=== PATIENT | female | born 1990 | race Caucasian/White ===

== ENCOUNTER 2020-12-31 01:07 | Inpatient (IN) | payer BC, SELFPAY ==
[2020-12-31] VITALS (124 sets, daily range): BP systolic 78–150; BP diastolic 43–109; PULSE 57–247; RESP 18; TEMP 36.3–36.8; O2SAT 94–100; BMI 31.6
[2020-12-31 02:04] LABS: Basophils Percent Auto 0.2 % (0.2-1.2); Eosinophils Absolute Auto 0.1 K/mm3 (0-0.3); Eosinophils Percent Auto 1.1 % (0-4.4); Hematocrit 33.9 % (37.0-47.0); Hemoglobin 11.9 g/dL (12.0-15.0); Immature Granulocyte Absolute 0.14 K/mm3 (0.00-0.031); Immature Granulocyte Percent A 1.1 % (0-0.5); Lymphocytes Absolute Auto 3.05 K/mm3 (0.9-3.2); Lymphocytes Percent Auto 24.7 % (18.3-44.2); Mean Corpuscular HGB Conc 35.1 g/dl (32-36); Mean Corpuscular Volume 91.1 fl (80-100); Mean Platelet Volume 9.5 fl (7.4-10.4); Monocytes Percent Auto 7.9 % (2.6-8.5); Platelet Count Result 217 k/mm3 (150-375); Red Blood Count 3.72 M/mm3 (4.2-5.4); Red Cell Distribution Width 12.9 % (11.5-14.5); White Blood Count 12.3 K/mm3 (4.5-10.0)
[2020-12-31] MEDS: LACTATED RINGERS 1,000 ML 125 ML IV CONT ×2 (04:30→11:06)
[2020-12-31] MEDS: OXYTOCIN 30 UNITS/NS 500 ML 30 UNITS/500 ML BAG IV CONT (04:30)
--- NOTE | 2020-12-31 08:34 | WPDOBADMIT ---
Obstetrics - Admit Note Admission Note: record reviewed. No pertinent additions to the history and/or any subsequent changes in the physical findings that are not consistent with the expected course of the were found.SROM, admitted to LD, anticipate vaginal delivery Additions to the history and/or subsequent changes in the physical findings follow. None.
--- NOTE | 2020-12-31 08:46 | WPDANESEPP ---
Anes - Eval Pre Procedure Procedure: labor epidural Date/Time: 12/31/20 08:46 Surgeon: nhung Preop Diagnosis: pain during labor Pre Op Diagnosis: Leaking Patient Data Age: 30 Gender: F Height: 1.78 m Weight: 100 kg Last Vital Signs Temp 36.6 C 12/31/20 07:02 Pulse 96 12/31/20 08:31 BP 134/74 12/31/20 08:31 Pulse Ox 100 12/31/20 08:42 Allergies Allergy/AdvReac Type Severity Reaction Status Date / Time Penicillins Allergy Unknown Hives Verified 12/31/20 01:26 Home Medications Medication Instructions Recorded Confirmed Type PNV cmb#95-ferrous fumarate-FA 1 tablet PO DAILY 11/30/20 12/31/20 History [] Laboratory Tests 12/31/20 12/31/20 12/31/20 01:45 01:45 01:45 WBC 12.3 K/mm3 H K/mm3 (4.5-10.0) RBC 3.72 M/mm3 L M/mm3 (4.2-5.4) Hgb 11.9 g/dL L g/dL (12.0-15.0) Hct 33.9 % L % (37.0-47.0) MCV 91.1 fl fl (80-100) MCH 32.0 pg pg (26-34) MCHC 35.1 g/dl g/dl (32-36) RDW 12.9 % % (11.5-14.5) Plt Count 217 k/mm3 k/mm3 (150-375) MPV 9.5 fl fl (7.4-10.4) Immature Gran % (Auto) 1.1 % H % (0-0.5) Neut % (Auto) 65.0 % % (45.5-73.1) Lymph % (Auto) 24.7 % % (18.3-44.2) [place] % (Auto) 7.9 % % (2.6-8.5) Eos % (Auto) 1.1 % % (0-4.4) Baso % (Auto) 0.2 % % (0.2-1.2) Lymph # (Auto) 3.05 K/mm3 K/mm3 (0.9-3.2) [place] # (Auto) 1.0 K/mm3 H K/mm3 (0.1-0.6) Eos # (Auto) 0.1 K/mm3 K/mm3 (0-0.3) Baso # (Auto) 0.0 K/mm3 K/mm3 (0.0-0.1) Abs Immat Gran (auto) 0.14 K/mm3 H K/mm3 (0.00-0.031) Absolute Neuts (auto) 8.0 K/mm3 H K/mm3 (1.3-6.7) Absolute Nucleated RBC 0.0 K/mm3 K/mm3 (0.0-0.012) Nucleated RBC % 0.0 % % (0.0-0.2) RPR Pending Blood Type AB Positive Antibody Screen Negative Patient hx anesthesia problems: none Family hx anesthesia problems: none Results Review: All pre-operative results and documents have been reviewed as part of the pre-operative evaluation. [facility] Past Medical History Medical History (Updated 12/31/20 @ 08:47 by Micheline Kim CRNA) IUP (intrauterine ), incidental Family History Family History (Updated 11/30/20 @ 15:37 by Rodrigo Hinds RN) Other No pertinent family history Social History Social History Smoking status: Never smoker Second hand tobacco smoke exposure: No Substance use: never Spiritual care concerns: No Exam Day of Procedure 12/31/20 08:46
[2020-12-31] MEDS: fentaNYL CITRATE INJ (*CRX) 100 MCG/2 ML VIAL 50 MCG IV PUSH (10:07)
[2020-12-31] MEDS: ONDANSETRON INJ 4 MG/2 ML VIAL IV PUSH (17:25)
--- NOTE | 2020-12-31 19:40 | PM.OBPRVD ---
OB - Delivery Note Procedure Delivery date: 12/31/20 Procedure: vaginal delivery events: Meconium Stained Fluid Intrapartal events: None and Deceleration (prior to delivery of head) Induction method: none Delivery augmentation: pitocin Delivery monitor: external FHT and external uterine Route of delivery: Episiotomy description: Right Mediolateral Delivery repair: vicryl Specimen: Yes Quantitative Blood Loss (ml): 360 Anesthesia type: Epidural Disposition: floor [place] Baby Date of : 12/31/20 Time of : 19:17 Weeks of gestation at delivery: 40 Infant gender: Female Weight (pounds): 8 Weight (ounces): 9 presentation: vertex position: Left Occiput Transverse Placenta delivery description: Spontaneous cord vessel description: 3 Vessels, Nuchal Cord, Reduced and Clamped/Cut score five minutes: 9 Narrative: With pushing heart rate decreased, back to baseline, as head was , heart rate in 60-70, maternal fatigue, asked pt and was consented for episiotomy, small RML made and fetus quickly delivered and baby to nursery RN
[2020-12-31] MEDS: OXYTOCIN 30 UNITS/NS 500 ML 30 UNITS/500 ML BAG 125 UNITS IV CONT (20:52)
[2020-12-31] MEDS: IBUPROFEN 600 MG TABLET PO (22:18)
[2020-12-31] MEDS: BENZOCAINE 20% AER SPR (*SP) 56 GM CAN 1 SPRAY TOPICAL (22:19)
[2020-12-31] MEDS: WITCH HAZEL 40 PADS 1 PAD TOPICAL (22:19)
--- NOTE | 2021-01-01 01:25 | OBPPTRN ---
12/31/2020 at 2240 Patient transferred to post room #281 in wheelchair. Support person present. Mother and her significant other oriented to unit, room, information board, rooming in, admission packet and security measures. Patient verbalizes understanding.
[2021-01-01 03:15] VITALS: BP 100/61; PULSE 86; RESP 16; TEMP 36.5; O2SAT 99
[2021-01-01 05:27] LABS: Hematocrit 30.7 % (37.0-47.0); Hemoglobin 10.6 g/dL (12.0-15.0)
--- NOTE | 2021-01-01 07:44 | PM.OBPNVD ---
OB - PN: Subj Subjective Date/time seen: 01/01/21 07:44 [place] baby status: doing well feeding status: exclusively breast feeding Narrative: complains of sore nipples and perineal pain. only took ibuprofen once and no ice for a while. OB - PN: Obj Data Labs CBC & Chem 7: 01/01/21 04:44 Labs: Laboratory Results - last 24 hr 01/01/21 04:44 Hgb 10.6 L Hct 30.7 L OB - PN A/P Plan day: 1 Plan: routine care Comments: encouraged ibuprofen and ice for perineum encouraged ibuprofen, gel pads, and consult for sore nipples- may need deeper latch. routine post care. Time Spent With Patient Time: Total time spent is greater than 50% in coordination of care (as documented) at patient's floor/unit and/or counseling patient: Time with patient: less than 15 minutes Exam Narrative: NAD abdomen soft, nontender, fundus firm below the umbilicus Extremities nontender, 1+ edema
[2021-01-01 08:00] VITALS: BP 105/68; PULSE 94; RESP 18; TEMP 36.5; O2SAT 99
--- NOTE | 2021-01-01 08:00 | PC.NURSE ---
PT introductions made and plan of care discussed per , pain management, breast feeding, sore nipples, daily care activities. PT and spouse both recipients of such instructions. No barriers to learning identified at this time. PT receives instructions and care per one to one discussion, mom baby care guide and demonstrations. PT verbalized understanding of such care.
[2021-01-01] MEDS: IBUPROFEN 600 MG TABLET PO ×3 (08:15→23:06)
[2021-01-01] MEDS: MULTIVIT/MIN/PREN/FOL AC/IRON TABLET 1 TAB PO (08:15)
[2021-01-01] MEDS: DOCUSATE SODIUM 100 MG CAPSULE PO ×2 (08:15→16:19)
--- NOTE | 2021-01-01 09:15 | PC.NURSE ---
Mother called out for assist with feeding. Mother reports infant is sleepy and makes eager attempts to latch with good bursts of nursing. Mother is using a nipple shield for all feedings. Mother has pain with all feedings. keeps tongue back and is not opening wide for deep latch, is able to flange both lips. Mother has bruising to both nipples, with redness to areola. Nipples have a small profile. Nipple care reviewed of lanolin after feedings, warm compresses as needed, gel pads provided and reviewed care and cleaning. Reviewed infant feeding cues, frequencies, duration of feedings, feeding elimination flow sheet, and signs of adequate intake. Demonstrated stimulation techniques to wake infant for feeding. Assisted with to breast. Reviewed positioning/alignment in cross cradle, holding breast in ?U? hold and guided asymmetrical latch on. Reviewed rational for each. Infant was unable to latch correctly causing mother pain. Mother would grimace and quickly tighten up when infant began to nurse. Several attempts made with and without nipple shield no effective nursing noted and mother continues to have pain. With shield in place, infant unable to latch correctly. would latch shallow to tip of shield not to outer rim. Discussed the difference of effective vs ineffective feeding. Reviewed infant is latching with good burst of suckling, she is not feeding consistently with adequate milk transfer at this time and continues to need to be supplement after . Feeding options discussed, Feeding Plan is for mother to put infant to breast each feeding for up to 15 minutes, then pace feed supplement 20 mls and pump for 10-15 minutes. Parents are comfortable with supplementation and pumping. If begins to nurse effectively with long draws and frequent swallowing noted, may decrease supplementation and discontinue pumping. Suggested mother have LC mixer operator raw salt observe feeding before discontinuing supplementation. Discussed increasing supplementation as infant requires to satisfactions. Reviewed paced feeding and suggested to stop when is satisfied, as long as is having required output. With increased supplementation may not want to feed for 4 hours. Mother will continue to pump on feeding schedule and will increase session to 20 minutes if pumping every 4 hours. Instructed mother to call out for RN assistance if she is unable to latch infant for feeding or she has discomfort with nursing. Instructed feeding should be initiated three hours from start of last feeding or if feeding cues are noted before. Mother voiced understanding of information shared.
--- NOTE | 2021-01-01 09:20 | PC.NURSE ---
Reviewed breast pump care and usage, pumping schedule, nipple care, and collection and storage of breast milk. Encouraged [id number], breast massage and manual expression to stimulate supply. Assessed patient for correct flange size, placement and draw. Patient verbalizes and demonstrates understanding of instructions. Discussed colostrum vs milk supply and mother may not see more than a few drops the first few days, milk should transition in by day 3 and she may see more volume pumped per session.
[2021-01-01 11:41] LABS: Rapid Plasma Reagin Non-Reactive (NonReactive)
[2021-01-01 11:57] VITALS: BP 110/71; PULSE 103; RESP 18; TEMP 36.5; O2SAT 98
[2021-01-01 12:00] VITALS: PULSE 103; RESP 18; O2SAT 98
--- NOTE | 2021-01-01 12:30 | PC.NURSE ---
Consult with pt., mother reports nipples continue with tenderness and pain. Mother wishes to pump and bottle feed this feeding. Reviewed nipple care.
--- NOTE | 2021-01-01 14:30 | WPDANLDPN2 ---
Anes-Prog Note L&D Date/Time: 01/01/21 14:30 Comfortable throughout: labor and delivery Neuraxial method: epidural Epidural/Spinal procedure site: clean & non-tender Neuro status: Neuro function grossly intact. Cardiovascular status: normal Respiratory status: normal Airway patency: baseline Mental status: baseline Post-Op hydration status: normal Vital Signs: Last Vital Signs Temp 36.5 C 01/01/21 11:57 Pulse 103 H 01/01/21 12:00 Resp 18 01/01/21 12:00 BP 110/71 01/01/21 11:57 Pulse Ox 98 01/01/21 12:00 Pain score (VAS): 3 I/O: Intake & Output 12/31/20 01/01/21 01/01/21 23:59 07:59 15:59 Intake Total 500 Output Total 123 Balance 377 Post-procedural complaints: none Patient feedback: Patient satisfied with anesthetic care.
[2021-01-01 16:10] VITALS: BP 108/68; PULSE 100; RESP 16; RESP 18; TEMP 36.6; O2SAT 99
[2021-01-01 18:38] VITALS: BP 112/70; PULSE 91; RESP 16; TEMP 36.5; O2SAT 99
--- NOTE | 2021-01-01 20:45 | PC.NURSE ---
01/01/2021 at 2030 Patient viewed the discharge video Mother & Baby Care, The First Two Weeks . Patient was given the opportunity and encouraged to ask questions. Patient verbalized understanding of information shared and has been given the mother/baby guide for home reference.
--- NOTE | 2021-01-02 07:38 | PM.OBPNVD ---
OB - PN: Subj Subjective Date/time seen: 01/02/21 07:38 Patient comments: no complaints baby status: doing well [place] feeding status: pumping and bottle feeding OB - PN: Obj Data Labs CBC & Chem 7: 01/01/21 04:44 Labs: Laboratory Results - last 24 hr 12/31/20 01:45 RPR Non-reactive OB - PN A/P Plan day: 2 Plan: routine care and discharge home Time Spent With Patient Time: Total time spent is greater than 50% in coordination of care (as documented) at patient's floor/unit and/or counseling patient: Time with patient: less than 15 minutes Exam Narrative: NAD abdomen soft, nontender, fundus firm below the umbilicus Extremities nontender, 1+ edema
--- NOTE | 2021-01-02 07:41 | PM.OBDSVD ---
DS: Admitting Diagnosis Discharge Date 01/02/21 Admitting Diagnosis term , labor DS: Discharge Diagnosis Discharge Diagnosis (1) , delivered: Code(s): O80 - Encounter for full-term uncomplicated delivery Status: Acute OB - DS: Summary OB Procedures : Ultrasound OB Procedures Intrapartum: Spontaneous Vag Delivery OB Procedures: : None Peripartum Data Delivery Method: Natural Vaginal complications: none Status at Discharge Functional status at discharge: independent ambulation Time Spent with Patient Time attestation: Total time spent providing and/or coordinating discharge services: Time spent: Less than 30 minutes Exam Narrative: NAD abdomen soft, appropriately tender Ext non tender, 1+ edema DS: Data Data Completed and Pending Pending studies at discharge: Pending at discharge 12/31/20 19:23 Surgical [PTH] Routine Labs on day of discharge: Labs from last 24 hours 12/31/20 01:45 RPR Non-reactive Discharge Plan Discharge Attending physician on discharge: Misty Garcia Discharging Clinician: Misty Garcia Anticipated Discharge Date/Time: 01/02/21 11:00 Patient Disposition: Home, Self-Care Activity: may shower and pelvic rest Diet: regular Patient Instructions: Antibiotic Form Stand Alone Forms: General Discharge Information Follow-up/Referrals: Misty Garcia MD [Physician] - 4 Weeks Discharge Medications: Continued PNV cmb#95-ferrous fumarate-FA [] 28 mg iron- 800 mcg Tablet 1 tablet PO DAILY RF: 0 Date of admission: 12/31/20 01:07 Primary Care Provider: Marie Chun Admitting Provider: Misty Garcia Attending physician on admission: Misty Garcia Condition: Stable
[2021-01-02 07:55] VITALS: BP 104/66; PULSE 87; RESP 16; TEMP 36.6; O2SAT 100
[2021-01-02] MEDS: IBUPROFEN 600 MG TABLET PO (07:59)
[2021-01-02] MEDS: MULTIVIT/MIN/PREN/FOL AC/IRON TABLET 1 TAB PO (07:59)
--- NOTE | 2021-01-02 09:15 | PC.NURSE ---
Mother called out for assist with feeding. Mother reports infant continues with sleepiness and difficulties with latch. Mother uses the shield for each feeding and has pain with feeding. makes eager attempts to latch with a few good bursts of nursing. Infant is dropping tongue and has a slightly tight frenulum, both lips flange. . Skin is intact on both nipples, no redness and bruising noted. Nipple care reviewed of lanolin after feedings, warm compresses as needed, gel pads provided and reviewed care and cleaning. Reviewed infant feeding cues, frequencies, duration of feedings, feeding elimination flow sheet, and signs of adequate intake. Demonstrated stimulation techniques to wake for feeding. Assisted with to breast. Reviewed positioning/alignment in cross cradle, holding breast in ?U? hold and guided asymmetrical latch on. Reviewed rational for each. was able to latch using nipple shield, once latched made a weak effort to suckle with a few short draws and then fell asleep with nipple in mouth. Infant stimulated to wake with to return to breast with same results. Mother reported discomfort with nursing. Several attempts made to adjust latch without success. Mother states she will continue to attempt each feeding for a few minutes then bottle feed EBM/formula and pump. Mother has a [employer] double electric pump for home use. Feeding Plan is for mother to put to breast each feeding for 5-15 minutes, then pace feed supplement 25 mls and pump for 10-15 minutes. Parents are comfortable with supplementation and pumping. If begins to nurse effectively with long draws and frequent swallowing noted, infant may decrease supplementation and discontinue pumping. Suggested mother have LC immigration attorney observe feeding before discontinuing supplementation. Discussed increasing supplementation as requires to satisfactions. Reviewed paced feeding and suggested to stop when is satisfied, as long as is having required output. With increased supplementation may not want to feed for 4 hours. Mother will continue to pump on feeding schedule and will increase session to 20 minutes if pumping every 4 hours. Mother plan on discharge today. Mother is feeding as required and waking to feed if needed. Infantis currently meeting outcomes for weight, output, jaundice and feeding frequencies. Mother states she feels confident to continue current feeding plan at home. Reviewed transition to breast milk, signs of adequate intake, and engorgement/relief. Instructed to call ICP if intake/output less than required. Reviewed regular medications mother is taking. Information provided per Yanna. Reviewed community resources on the [facility] and in the Mom/Baby guide. Information on outpatient services provided. Mother has no further questions at this time.
[2021-01-03 08:11] VITALS: BP 121/79; PULSE 90; RESP 20; TEMP 37; O2SAT 100
== END 2021-01-02 13:25 | disposition home or self-care (01) | DRG 807 ==
LOC: ANHLDR 01:46 → ANHOB2 22:42
PROVIDERS: Advanced Practice Midwife; Admitting Provider Obstetrics & Gynecology; PCP Family Medicine; Visit Provider Obstetrics & Gynecology
DX: O76 Abnormality in fetal heart rate and rhythm complicating labor and delivery (principal); Z37.0 Single live birth; O77.0 Labor and delivery complicated by meconium in amniotic fluid; O69.81X0 Labor and delivery complicated by cord around neck, without compression, not applicable or unspecified; Z3A.40 40 weeks gestation of pregnancy
CPT/HCPCS: 36415; 85014; 85018; 85025; 86592; 86850; 86900; 86901; 88307; A9270; J2405; J2590; J2795; J3010; J7120

== ENCOUNTER 2021-01-09 14:11 | Outpatient (RCR) | payer BC, SELFPAY ==
--- NOTE | 2021-01-09 15:00 | PC.NURSE ---
IN 1300 OUT 1400 HISTORY: Pt. delivered at [facility] at 38 weeks. had no complications after delivery. Mother had no complications after delivery. Mother and discharged on a feeding plan due to ineffective feeding and nursing with nipple shield. Infant is now 09 days old. appears to be well cared for. last seen/will be seen by ICP at 1 week. Mother reports: Currently at 8 wets per day and 2-4 yellow seedy stools per day. Once discharged infant began feeding more frequently, mother was having difficulties keeping up with feeding schedule. Infant would feed every 2-3 hours for 15-30 minutes at one breast, mother would pump for 15 minutes, while FOB would bottle feed 60mls mostly EBM. Mother struggles with nipple shield and reports discomfort at times with feeding. is sleepy and on and off several times during feeding. Mother is pumping 60-80 mls each session without issue. Mother wishes: Mother states she is unsure if she wishes to discontinue bottle feeding and may want to pump and bottle feed,not putting infant to breast. Parents would like to discuss and review process for each feeding plan. OBSERVATION: Tongue is able to move tongue freely past gum ridge, both lips flange easily. Mother has everted nipples slight redness noted. Mother is engorged, advised to self express to soften before attempting latch. Demonstrated self expression. Discussed if breasts are firm infant is unable to draw areola in deeply for correct latch and is only nursing on nipple. Observed mother putting infant to breast in cradle positioning with infant latching to nipple only. Mother is grimacing in discomfort. Reviewed positioning/alignment in cross cradle, holding breast in U hold and guided asymmetrical latch on. Discussed rational for each. Infant was able to latch correctly within a few attempts. nursed eagerly, with steady draws and frequent swallowing noted. Reviewed signs of a correct latch, effective nursing and suck swallow ratio. would pull back while feeding, slipping to shallow latch causing mother discomfort. Infant would frequently release latch, eager to return to breast Demonstrated how to adjust latch more deeply while feeding. Suggested mother give slight resistance and bring infant to breast when he pulls back. Advised to stimulate while feeding to keep nursing effectively/consistent and to assist with maintaining latch. Mother was able to independently switch to other breast without assist. Advised to offer both breasts per feeding to move infant off of supplementation and bottle feeding. Discussed if mother is able to pump and give EBM to satisfaction, she has enough milk to satisfy infant. Infant needs to maintain latch and empty both breasts, before supplementation is discontinued. Mother will put infant to breast on demand or by three hours from last feeding. If mother choose to pump and bottle feed, mother will pump both breasts every 2-3 hours for 15-20 minutes. Reviewed warm compresses and massage before pumping. PLAN: Mother plans to work on more over the next few days before making the decision to pump and bottle feed. Mother will call with further questions or concerns.
== END 2021-03-15 12:39 | disposition home or self-care (01) ==
LOC: ANHOBOP 14:11
PROVIDERS: PCP Family Medicine; Visit Provider Pediatrics
DX: Z39.1 Encounter for care and examination of lactating mother (principal)
CPT/HCPCS: 99212; G0463

== ENCOUNTER 2021-01-15 02:33 | Day surgery (SDC) | payer BC, SELFPAY ==
[2021-01-11 15:26] VITALS: BMI 28.7
--- NOTE | 2021-01-11 15:34 | PC.NURSE ---
Report to the Outpatient Waiting Room, entrance under the green pavilion located off [facility], at time 0630 on date 01/15/21. OR Time: 0830. - You and your visitor will be asked a series of questions to screen for COVID 19 for your protection. - A mask is required within the hospital. - Only one visitor is allowed at this time. Patient visitors will be guided where to wait when not with patient. Preoperative COVID Testing Requirements: No COVID Test needed if: (proof is required; if not received patient will have Rapid Test prior to entry) - Patient has received COVID Vaccine at least 14 days prior to procedure date or - Patient has positive COVID test result within last 90 days of surgery date. COVID Test needed if above criteria is not met If not COVID vaccinated a COVID test must be conducted within 72 hours of surgery and patient is asked to isolate self from time of testing until procedure. You will go to the [facility] for your COVID testing. The [facility] site is located at the corner of [address] [facility]. You will only be called if COVID results are positive and your surgeon may reschedule your elective surgery date. Patients may have clear liquids (water, carbonated beverages, clear teas, apple juice) until 3 hours prior to surgery with a maximum of 20 ounces. - No food from midnight until time of surgery - Infants may have breast milk until 4 hours before surgery, infant formula 6 hours prior to surgery. - Children will be allowed to drink immediately following surgery. If applicable, please bring a bottle or sippy cup to assist with drinking. Juice, water, soda, and popsicles are readily available. For infants on formula, please bring formula the day of surgery. Pacifiers are allowed. Take the following medications with a SIP of water the morning of surgery: N/A Medications to discontinue per physician: VITAMINS/SUPPLEMENTS Date to take last dose: 01/12/21 IBUPROFEN - PER DR. ALDANA Please no make-up, nail togolese, hairspray, perfume, deodorant, or body powder the day of surgery. No jewelry (including any body piercings) or valuables the day of surgery, leave them at home. Please take a shower or bath the night before, or the morning of, surgery with an antibacterial soap. Wear comfortable, loose fitting clothing. Children are encouraged to wear pajamas. - Jewelry must be removed prior to entering the operating room. Rings and piercings that are not removed may be cut off. - The hospital will not accept responsibility for valuables. - Please leave all valuables, including medications, at home the day of surgery. If you are going home after surgery, a licensed local hazmat driver must drive you home. - NO public transportation without another adult. - We recommend that an adult stay with you for 24 hours following discharge. - We also recommend that you do not drive, make important decision, drink alcoholic beverages, or take any drugs that were not prescribed by your health care provider for at least 24 hours after your discharge time. For Pediatric surgeries, we recommend two adults accompany the child home (only one inside the building at this time). Follow any additional instructions given to you from your surgeon. Telephone instructions given to JESSICA HAMILTON and asked if any additional questions and then verbalized understanding. Patient advised to call surgeon office or pre surgery nurse liaison [phone] if any additional questions.
[2021-01-15] VITALS (8 sets, daily range): BP systolic 96–131; BP diastolic 63–87; PULSE 74–107; RESP 16–18; TEMP 36.1–36.2; O2SAT 96–100
--- NOTE | 2021-01-15 06:48 | WPDANESEPPF ---
Anes - Initial Pre Proc Eval Procedure: Operation Date: 01/15/21 08:30 Proposed Procedures p Revision Perineal Laceration - Misty Garcia MD Date/Time: 01/15/21 06:48 Surgeon: Misty Garcia MD Pre Op Diagnosis: perineal laceration, OB wound disruption Patient Data Age: 30 Gender: F Height: 1.78 m Weight: 90.7 kg Allergies Allergy/AdvReac Type Severity Reaction Status Date / Time Penicillins Allergy Unknown Hives Verified 01/11/21 15:24 Home Medications Medication Instructions Recorded Confirmed Type PNV cmb#95-ferrous fumarate-FA 1 tablet PO DAILY 11/30/20 01/11/21 History [] docusate sodium [Colace] 100 mg PO DAILY 01/11/21 01/11/21 History ibuprofen 200 mg PO Q6H PRN 01/11/21 01/11/21 History Patient hx anesthesia problems: none Family hx anesthesia problems: none Results Review: All pre-operative results and documents have been reviewed as part of the pre-operative evaluation. [facility] Past Medical History Medical History (Updated 01/15/21 @ 06:48 by Nawaf Toussaint MD) IUP (intrauterine ), incidental Overweight Surgical History Surgical History (Updated 01/15/21 @ 06:49 by Nawaf Toussaint MD) H/O breast surgery Family History Family History Other No pertinent family history Social History Social History Smoking status: Never smoker Second hand tobacco smoke exposure: No Alcohol intake: never Substance use: never Substance use type: does not use Living arrangements: with family Spiritual care concerns: No Anes - Eval Final PreProcedure Day of Procedure 01/15/21 06:48 Patient weight: overweight Heart: regular rate and rhythm Lungs: clear to auscultation Airway: Mallampati scale class II Neurological: alert and oriented Last oral intake: >/= 8 hours Anesthetic plan: proceed Anesthesia type and monitoring: general LMA and standard monitoring Results Review: All pre-operative results and documents have been reviewed as part of the pre-operative evaluation. Informed Consent: The patient's anesthetic plan and its attendant risks and benefits were discussed with the patient/family/POA. Questions were solicited and answers provided to the satisfaction of the patient/family/POA.
[2021-01-15] MEDS: LACTATED RINGERS 1,000 ML 30 ML IV CONT (06:55)
--- NOTE | 2021-01-15 07:24 | PM.IMHP ---
H&P: HPI History of Present Illness Date/Time: 01/15/21 07:24 Chief Complaint: episiotomy open Narrative: Elida is a 30yo 2weeks s/p with episiotomy that had increasing pain and lump at perineum starting last week. She was noted to have partial disruption of her repair, with a portion of right side of repair hanging midline and deeper tissues exposed. She presents for repair of this. Review of Systems Review of Systems: All systems reviewed & are unremarkable except as noted in HPI and below PMFSH Past Medical History Medical History (Updated 01/15/21 @ 07:27 by Misty Garcia MD) IUP (intrauterine ), incidental Overweight Surgical History Surgical History (Updated 01/15/21 @ 06:49 by Nawaf Toussaint MD) H/O breast surgery Family History Family History Other No pertinent family history Social History Social History Smoking status: Never smoker Second hand tobacco smoke exposure: No Alcohol intake: never Substance use: never Substance use type: does not use Living arrangements: with family Spiritual care concerns: No Meds Home Medications and Allergies Home Medications Medication Instructions Recorded Confirmed Type PNV cmb#95-ferrous fumarate-FA 1 tablet PO DAILY 11/30/20 01/15/21 History [] docusate sodium [Colace] 100 mg PO DAILY 01/11/21 01/15/21 History ibuprofen 200 mg PO Q6H PRN 01/11/21 01/15/21 History Allergies Allergy/AdvReac Type Severity Reaction Status Date / Time Penicillins Allergy Unknown Hives Verified 01/15/21 07:15 Vital Signs Vital Signs - 24 hr 01/15/21 06:30 Temperature 97.1 F L Pulse Rate 74 Respiratory Rate 18 Blood Pressure 106/87 Pulse Oximetry 99 Exam Const: General: no acute distress Resp: Effort & Inspection: normal respiratory effort Auscultation: clear to auscultation bilaterally Cardio: Rate: regular rate Rhythm: regular rhythm GI: GI Palp: Yes Soft to palpation Extrem: General: normal to inspection Assessment and Plan Assessment and plan (1) Disruption of perineal obstetric wound: Code(s): O90.1 - Disruption of perineal obstetric wound Status: Acute Additional Plan Discussed RBA and consented for repair in OR. no signs of infection. Will proceed.
--- NOTE | 2021-01-15 07:27 | WPDHPUPDATE1 ---
History and Physical Update Update Date/Time: 01/15/21 07:27 History and Physical has been reviewed, including an updated exam of the patient. There are NO changes in the patient's condition. Risks, benefits, and alternatives have been discussed and questions answered. Patient agrees to proceed with procedure.
[2021-01-15] MEDS: LIDO 1%/EPINEPHRINE 1:100,000 50 ML VIAL 10 ML INFILTRATE (08:45)
--- NOTE | 2021-01-15 09:19 | SUR.OPER ---
EBL:10cc
--- NOTE | 2021-01-15 09:23 | P.OP_ITS ---
Procedure Note - Detailed Date of Procedure 01/15/21 Pre-op Diagnosis perineal laceration, OB wound disruption Post-op Diagnosis same Procedure Performed revision of disrupted obstetric laceration Surgeon Misty Garcia MD Drop Hammer Set Up Operator none Anesthesia MAC and local Description of Procedure The patient was taken to the operating room and placed in supine position. She received MAC and was placed in dorsal lithotomy in stirrups. The vulva and vagina were prepped and draped. 11cc lidocaine instilled bilaterally in the skin around the disrupted wound. The edges were freshened up using metzenbaum scissors and scalpel. Two deep sutures were placed with 3-0 vicryl to reapproximate the tissue, and the mucosa/skin was then closed with 3-0 vicryl. The total repair length was 2cm mucosa in the vagina and 4cm on the right labia and perineum for a total of 6cm. Hemostasis was excellent. The patient was awakened from anesthesia and taken to the recovery room in good condition. Estimated Blood Loss 10 Drains No Packing No Pathology yes Complications No immediate complications Condition stable Disposition floor
== END 2021-01-15 11:20 | disposition home or self-care (01) ==
PROVIDERS: PCP Family Medicine; Visit Provider Obstetrics & Gynecology
PROC: (CPT 59300; principal; 2021-01-15 08:30)
DX: O90.1 Disruption of perineal obstetric wound (principal)
CPT/HCPCS: 12042; A9270; J1100; J2250; J2405; J2704; J3010; J7120

== ENCOUNTER 2023-10-04 18:24 | Outpatient (CLI) | payer BC, SELFPAY ==
[2023-10-04 23:34] LABS: OBXCEM ROM Plus Negative
== END 2023-10-04 19:10 | disposition home or self-care (01) ==
PROVIDERS: PCP Family Medicine; Visit Provider Advanced Practice Midwife
DX: O41.8X90 Other specified disorders of amniotic fluid and membranes, unspecified trimester, not applicable or unspecified (principal); Z3A.00 Weeks of gestation of pregnancy not specified
CPT/HCPCS: 59025; 84112

== ENCOUNTER 2023-10-05 19:31 | Inpatient (IN) | payer BC, SELFPAY ==
[2023-10-05 21:00] VITALS: BP 111/70; PULSE 97
[2023-10-05 21:05] LABS: Basophils Percent Auto 0.4 % (0.2-1.2); Eosinophils Absolute Auto 0.1 K/mm3 (0-0.3); Eosinophils Percent Auto 1.1 % (0-4.4); Hematocrit 34.1 % (37.0-47.0); Hemoglobin 11.8 g/dL (12.0-15.0); Immature Granulocyte Absolute 0.07 K/mm3 (0.00-0.031); Immature Granulocyte Percent A 0.7 % (0-0.5); Lymphocytes Absolute Auto 2.65 K/mm3 (0.9-3.2); Lymphocytes Percent Auto 24.8 % (18.3-44.2); Mean Corpuscular HGB Conc 34.6 g/dl (32-36); Mean Corpuscular Volume 89.5 fl (80-100); Mean Platelet Volume 9.9 fl (7.4-10.4); Monocytes Absolute Auto 0.7 K/mm3 (0.1-0.6); Monocytes Percent Auto 6.4 % (2.6-8.5); Neutrophils Absolute Auto 7.1 K/mm3 (1.3-6.7); Neutrophils Percent Auto 66.6 % (45.5-73.1); Platelet Count Result 209 k/mm3 (150-375); Red Blood Count 3.81 M/mm3 (4.2-5.4); Red Cell Distribution Width 13.3 % (11.5-14.5); White Blood Count 10.7 K/mm3 (4.5-10.0)
[2023-10-05 21:56] LABS: HIV 1/2 Ab P24 Ag Result Negative (Negative)
[2023-10-05 22:00] VITALS: TEMP 36.4
[2023-10-05 22:01] VITALS: BP 115/70; PULSE 81
[2023-10-05 22:10] LABS: Rapid Plasma Reagin Non-Reactive (NonReactive)
[2023-10-06] VITALS (144 sets, daily range): BP systolic 88–125; BP diastolic 41–82; PULSE 58–122; RESP 16–18; TEMP 36.4–37.7; O2SAT 93–100; BMI 30.9
[2023-10-06] MEDS: fentaNYL CITRATE INJ (*CRX) 100 MCG/2 ML VIAL IV PUSH (01:23)
--- NOTE | 2023-10-06 02:02 | WPDANESEPP ---
Anes - Eval Pre Procedure Procedure: labor epidural Date/Time: 10/06/23 02:02 Surgeon: Taz Preop Diagnosis: Abdominal pain with contractions Pre Op Diagnosis: SROM Patient Data Age: 32 Gender: F Height: Weight: Last Vital Signs Pulse 79 10/06/23 02:00 BP 122/82 10/06/23 02:00 Allergies Allergy/AdvReac Type Severity Reaction Status Date / Time Penicillins Allergy Unknown Hives Verified 09/26/23 12:32 Home Medications Medication Instructions Recorded Confirmed Type vits no.126-ferrous fum 1 tablet PO DAILY 09/26/23 09/26/23 History 28 mg iron-folic acid 800 mcg tablet (Classic ) Laboratory Tests 10/05/23 10/05/23 20:57 20:58 WBC 10.7 H K/mm3 (4.5-10.0) RBC 3.81 L M/mm3 (4.2-5.4) Hgb 11.8 L g/dL (12.0-15.0) Hct 34.1 L % (37.0-47.0) MCV 89.5 fl (80-100) MCH 31.0 pg (26-34) MCHC 34.6 g/dl (32-36) RDW 13.3 % (11.5-14.5) Plt Count 209 k/mm3 (150-375) MPV 9.9 fl (7.4-10.4) Immature Gran % (Auto) 0.7 H % (0-0.5) Neut % (Auto) 66.6 % (45.5-73.1) Lymph % (Auto) 24.8 % (18.3-44.2) Lamb % (Auto) 6.4 % (2.6-8.5) Eos % (Auto) 1.1 % (0-4.4) Baso % (Auto) 0.4 % (0.2-1.2) Lymph # (Auto) 2.65 K/mm3 (0.9-3.2) Lamb # (Auto) 0.7 H K/mm3 (0.1-0.6) Eos # (Auto) 0.1 K/mm3 (0-0.3) Baso # (Auto) 0.0 K/mm3 (0.0-0.1) Abs Immat Gran (auto) 0.07 H K/mm3 (0.00-0.031) Absolute Neuts (auto) 7.1 H K/mm3 (1.3-6.7) Absolute Nucleated RBC 0.000 K/mm3 (0.0-0.012) Nucleated RBC % 0.0 % (0.0-0.2) RPR Non-reactive (NonReactive) HIV 1&2 Ab/P24 Ag 4thGn Negative (Negative) Blood Type AB Positive Antibody Screen Negative : gestational age HCG: positive Patient hx anesthesia problems: none Family hx anesthesia problems: none Results Review: All pre-operative results and documents have been reviewed as part of the pre-operative evaluation. [facility] Past Medical History Medical History History of anemia IUP (intrauterine ), incidental Overweight TMJ (temporomandibular joint disorder) Surgical History Surgical History H/O breast surgery Family History Family History Other No pertinent family history Social History Social History Smoking status: Never smoker Second hand tobacco smoke exposure: No Alcohol intake: never Alcohol use details: RARE Substance use: never Substance use type: does not use Living arrangements: with family Occupation/Education: occupation Spiritual care concerns: No Exam Day of Procedure 10/06/23 02:02 Patient weight: overweight
[2023-10-06] MEDS: LACTATED RINGERS 1,000 ML 125 ML IV CONT ×3 (02:27→08:39)
--- NOTE | 2023-10-06 04:21 | LDADM ---
This patient, Consuelo Morales, was admitted to Labor/Delivery/Recovery 105 on 10/05/23 at 19:31. Plans for labor, pain management and were discussed with patient. Patient/family oriented to hospital policies and general routines including ID bracelet, bed and alarms, visiting hours, pain management, procedures, bathroom and other care routines, personal items, smoking policy, room service/diet and guest tray routines, infant security routines, and visiting hours. Patient/Family are encouraged to report perceived risks to care and to ask questions if they do not understand what they are told or what they should do. See OBIX for further documentation.
[2023-10-06] MEDS: OXYTOCIN 30 UNITS/NS 500 ML 30 UNITS/500 ML BAG IV CONT (08:40)
[2023-10-06] MEDS: ACETAMINOPHEN 500 MG TABLET 1000 MG PO (08:48)
[2023-10-06] MEDS: ONDANSETRON INJ 4 MG/2 ML VIAL IV PUSH (09:36)
--- NOTE | 2023-10-06 10:02 | WPDOBADMIT ---
Obstetrics - Admit Note Admission Note: record reviewed. No pertinent additions to the history and/or any subsequent changes in the physical findings that are not consistent with the expected course of the were found. Additions to the history and/or subsequent changes in the physical findings follow. Admit in labor, SROM, anticipate vaginal delivery
--- NOTE | 2023-10-06 12:58 | PM.OBPRVD ---
OB - Vaginal Delivery Note Procedure Delivery date: 10/06/23 Delivery augmentation: Pitocin Delivery monitor: External FHT and External Uterine Route of delivery: Episiotomy description: Right Mediolateral Delivery repair: vicryl Specimen: No Quantitative Blood Loss (ml): 200 Anesthesia type: Epidural Disposition: Floor Complications: No immediate complications Baby Date of : 10/06/23 Time of : 12:43 Gestational Age by Date: 37 Infant gender: Female Weight (pounds): 8 Weight (ounces): 8 presentation: vertex position: Left Occiput Anterior Placenta delivery description: Spontaneous Cord Vessel Description: 3 Vessels, Nuchal Cord (x1), Loose, Clamped/Cut and Around Body (x1) Narrative: mother and baby in stable condition
[2023-10-06] MEDS: OXYTOCIN 30 UNITS/NS 500 ML 30 UNITS/500 ML BAG 125 UNITS IV CONT (13:11)
[2023-10-06] MEDS: ACETAMINOPHEN 325 MG TABLET 650 MG PO ×2 (14:36→23:30)
[2023-10-06] MEDS: WITCH HAZEL 40 PADS 1 PAD TOPICAL (15:30)
[2023-10-06] MEDS: BENZOCAINE 20% AER SPR (*SP) 56 GM CAN 1 SPRAY TOPICAL (15:30)
--- NOTE | 2023-10-06 16:14 | OBPPTRN ---
Patient transferred to post room #282 via wheelchair. Support person present. Oriented to unit, room, information board, rooming in, admission packet and security measures. Patient verbalizes understanding.
[2023-10-07 03:45] VITALS: BP 95/66; PULSE 75; RESP 16; TEMP 36.6; O2SAT 100
[2023-10-07 04:44] LABS: Hematocrit 30.8 % (37.0-47.0); Hemoglobin 10.6 g/dL (12.0-15.0)
--- NOTE | 2023-10-07 05:17 | PM.OBPNVD ---
OB - PN: Subj Subjective Date/time seen: 10/07/23 05:17 Interval history: PPD#1 Doing well, having some increased cramping with no nausea or vomiting Voiding without issue OB - PN: Obj Data Labs 10/07/23 03:37 Labs: Laboratory Results - last 24 hr 10/07/23 03:37 Hgb 10.6 L Hct 30.8 L OB - PN A/P Assessment and Plan (1) (spontaneous vaginal delivery): Code(s): O80 - Encounter for full-term uncomplicated delivery Status: Acute Plan day: 1 Plan: routine care Time Spent With Patient Time: Total time spent is greater than 50% in coordination of care (as documented) at patient's floor/unit and/or counseling patient: Review of Systems Review of Systems: All systems reviewed & are unremarkable except as noted in HPI and below Exam Const: General: comfortable and no acute distress Orientation/consciousness: patient oriented x3 Resp: Effort & Inspection: normal respiratory effort
[2023-10-07 07:20] VITALS: BP 102/68; PULSE 76; RESP 16; TEMP 36.9; O2SAT 100
[2023-10-07] MEDS: MULTIVIT/MIN/PREN/FOL AC/IRON TABLET 1 TAB PO (07:24)
[2023-10-07] MEDS: DOCUSATE SODIUM 100 MG CAPSULE PO ×2 (07:24→16:22)
[2023-10-07] MEDS: ACETAMINOPHEN 325 MG TABLET 650 MG PO ×2 (07:26→16:22)
--- NOTE | 2023-10-07 09:30 | PC.NURSE ---
Introductions were made, then consulted with patient to assess needs related to . Mother led the conversation with her?plans to feed?her infant and the?experience so far. Encouraged understanding of the benefits of skin to skin and waking especially in the first 24 hours of life. Mother's main complaint is pain with pumping. We measured her nipple and switched to a 27mm flange. Discussed that pumping should not hurt. Mother has attempted to latch baby since she came out of the level 2 nursery but has not had good success. She had latch difficulty with her first baby and exclusively pumped and bottle fed. She has tried the latch assist to draw her nipple out prior to feeding but she does not like it. We discussed pumping for a minute or two before feeding for a similar effect. Mother agrees to try this at the next feeding. Mother voiced understanding of skin to skin, talking to infant to encourage if it has been 2 -2.5 hours since the start of the last , to call if does not latch, or if there is discomfort with . Parents voiced understanding of information, demonstrated learning and will call if there is a request for assistance. Reported to the Primary RN.
--- NOTE | 2023-10-07 12:06 | WPDANLDPN2 ---
Anes-Prog Note L&D Date/Time: 10/07/23 12:06 Neuro status: Neuro function grossly intact. Cardiovascular status: normal Respiratory status: normal Airway patency: baseline Mental status: baseline Post-Op hydration status: normal Vital Signs: Last Vital Signs Temp 36.9 C 10/07/23 07:20 Pulse 76 10/07/23 07:20 Resp 16 10/07/23 07:20 BP 102/68 10/07/23 07:20 Pulse Ox 100 10/07/23 07:20 O2 Del Method Room Air 10/06/23 19:30 Pain score (VAS): 0 Post-procedural complaints: none Patient feedback: Patient satisfied with anesthetic care.
[2023-10-07 12:16] VITALS: BP 113/65; PULSE 72; RESP 16; TEMP 36.3; O2SAT 100
[2023-10-07] MEDS: WITCH HAZEL 40 PADS 1 PAD TOPICAL (13:51)
--- NOTE | 2023-10-07 14:40 | PC.NURSE ---
[id number] RN advised parents that she had received the OK for both mother and baby to be discharged as soon as they were ready, parents are still unsure about a name and mother would like to take a nap before discharge. Per mother her daughter and parents are coming after 4pm so they would like to go home later.
--- NOTE | 2023-10-07 16:25 | PM.OBDSVD ---
DS: Admitting Diagnosis Discharge Date 10/07/23 Admitting Diagnosis labor DS: Discharge Diagnosis Discharge Diagnosis (1) (spontaneous vaginal delivery): Code(s): O80 - Encounter for full-term uncomplicated delivery Status: Acute OB - DS: Summary OB Procedures : None OB Procedures Intrapartum: Spontaneous Vag Delivery OB Procedures: : None Peripartum Data Episiotomy description: Right Mediolateral Time Spent with Patient Time attestation: Total time spent providing and/or coordinating discharge services: DS: Data Data Completed and Pending Labs on day of discharge: Labs from last 24 hours 10/07/23 03:37 Hgb 10.6 L Hct 30.8 L Discharge Plan Discharge Attending physician on discharge: Edilberto Buenrostro Consulting providers: Marian Austin Discharging Clinician: Edilberto Buenrostro Patient Disposition: Home, Self-Care Activity: may shower, as tolerated and pelvic rest Diet: as tolerated Patient Instructions: Antibiotic Form Stand Alone Forms: General Discharge Information Follow-up/Referrals: Marian Austin, CNM [Certified Nurse [employer]] - 5 Weeks Discharge Medications: New docusate sodium 100 mg Capsule 100 mg PO BID PRN (Reason: Constipation) Qty: 60 0RF ibuprofen 600 mg Tablet 600 mg PO Q6H PRN (Reason: Cramping) Qty: 30 0RF Continued Classic 28 mg iron- 800 mcg Tablet 1 tablet PO DAILY Date of admission: 10/05/23 19:31 Primary Care Provider: Marie Chun Admitting Provider: John Mcghee Attending physician on admission: John Mcghee Condition: Stable
[2023-10-08 08:34] VITALS: BP 120/79; PULSE 87; RESP 18; TEMP 36.8; O2SAT 100
== END 2023-10-07 18:55 | disposition home or self-care (01) | DRG 807 ==
LOC: ANHOB2 10-07 16:55 → ANHLDR 10-08 07:45 → ANHOB2 10-08 07:45
PROVIDERS: Advanced Practice Midwife; Admitting Provider Obstetrics & Gynecology; PCP Family Medicine; Visit Provider Obstetrics & Gynecology
DX: O69.82X0 Labor and delivery complicated by other cord entanglement, without compression, not applicable or unspecified (principal); Z37.0 Single live birth; Z3A.37 37 weeks gestation of pregnancy; O77.0 Labor and delivery complicated by meconium in amniotic fluid
CPT/HCPCS: 36415; 85014; 85018; 85025; 86592; 86703; 86850; 86900; 86901; A9270; G0432; J2405; J2590; J2795; J3010; J7120

== ENCOUNTER 2024-08-09 08:22 | Outpatient (CLI) | payer BC, SELFPAY ==
--- OUTSIDE RECORDS SUMMARY | 2024-08-09 08:40 | XMS_ITS | Data Portability ---
Author Organization [facility] Address [address] [place] [address] Care Team Providers Care Merchandising Professor Name Role Phone SHOAIB MARCH Primary Care Provider [phone] Assessment Encounter Date Assessment Date Assessment LastModified by Organization Details LastModified Time 09/26/2023 09/26/2023 Patient is _36__weeks . Discussed plan. Not available 09/26/2023 11:56:52 10/01/2023 10/01/2023 Patient is _36__weeks . Discussed plan. Not available 10/01/2023 10:55:02 03/26/2024 03/26/2024 Annual gynecological exam performed. Patient will come back in a year unless there are new symptoms. Suggest Calcium with Vitamin D if not eating in diet. Patient advised to get annual flu shot. Recommend yearly physicals and preform monthly breast exams. Genetic testing is available for patients with family history of cancer. Engage in safe sexual practices, use condoms. Encouraged to have daily exercise. Avoid tobacco and illicit drugs, moderation of alcohol. If BMI greater than 25 dietary consult advised. If you have any questions please call or email. [email or web address] Not available 03/26/2024 14:33:11 Plan of Treatment Reminders Order Date Submit Date Provider Last Modified By Organization Details Last Modified Time Details Appointments None record ed. Lab None record ed. Referral None record ed. Procedures None record ed. Surgeries None record ed. Imaging US, obstet rene, follow -up 024 09/26/19 24 [email or web address] [facility], [address], [address], [place], [address], 22:52:30 Medication Orders None record ed. Patient TargetsNo targets recorded. Patient InstructionsNo instructions recorded. Reason for Referral None Reported. Results Created Date Observation Date Name Description Value Unit Range Abnormal Flag Note LastModifiedBy Organization Detail LastModifiedTime 09/26/19 24 09/26/2023 US, obste tric, follo w-up No observ ation record ed. vince [facility] [address], [place], [address], 09/26/2023 13:45:45 09/26/19 24 09/26/2023 US, obste tric, follo w-up No observ ation record ed. SHALOM Lana [address], [place], [address], 10/13/2023 04:10:13 Result Notes None recorded. Problems Name Problem SNOMED Code Status Onset Date Resolution Date Notes Provider Name and Address Organization Details Recorded Time SNOMED CT Concept Completed 201805/19/2020 Encntr for ticket worker exam (general ) (routine ) w/o abn findings ;Recorde d Elsewher e: No Locat ion: [facility] S ource: EHR Respiratory Equipment Assistant brea: N Radha ce ID: [id number] Tin lable Time: 10:30:00 AM Annie holman, [facility] 1 14:36:33 Pregnanc y [id number] Completed 202001/16/2021 Reji holman [facility] 4 15:12:37 Pregnanc y [id number] Completed 202310/16/2023 Reji holman [facility] 4 15:12:36 Large for gestatio n age fetus [id number] Completed 2023 Marian Austin CNM [address], [place], [address], [facility] 4 11:57:26 Problem Notes None recorded. Procedures Surgical History Date Name Laterality Status Provider Name and Address Organization Details Recorded Time 5 Date of Last Pap Smear completed [facility] 03/26/2024 14:13:04 1 repair of vagina completed [facility] 03/14/2023 13:01:07 8 Date of Last Mammogram completed [facility] 03/14/2023 12:52:26 8 lumpectomy of breast completed [facility] 11/17/2019 21:30:53 6 extraction of wisdom tooth completed [facility] 03/14/2023 13:01:33 Imaging Results None recorded. Procedure Notes None recorded. Medical Equipment None Reported. Allergies Allergen ID Allergen Name Allergen Category Reaction Reaction Severity Criticality Documentation Date Start Date Code Code System Note Provider Name and Address Organization Details Recorded Time 1955 Product containin g penicilli n (product) medicatio n Not available Not available Not available 11/05/2019 97163 8001 SNOMED [facility] 16:47:19 Medications Name Sig Start Date Stop Date Status Note LastModified by Organization Details LastModified Time kit car 10/20 completed Not Available Not Available Not Available prednison e 10 mg tablet 03/14 completed Not Available Not Available Not Available doxycycli ne hyclate 100 mg capsule TAKE 1 CAPSULE BY MOUTH EVERY 12 HOURS FOR 10 DAYS 03/14 completed Not Available Not Available Not Available fluconazo le 150 mg tablet TAKE 1 TABLET BY MOUTH EVERY DAY FOR 1 DAY 05/19 completed Not Available Not Available Not Available prednison e 20 mg tablet 11/04 completed Not Available Not Available Not Available metronida zole 500 mg tablet TAKE 1 TABLET BY MOUTH EVERY 12 HOURS FOR 7 DAYS 05/19 completed Not Available Not Available Not Available nystatin- triamcino lone 100,000 unit/gram -0.1 % topical ointment APPLY EXTERNAL LY TO THE AFFECTED AREA TWICE DAILY FOR 5 DAYS NEEDED 05/19 completed Not Available Not Available Not Available amoxicill in 875 mg tablet 11/04 completed Not Available Not Available Not Available docusate sodium 100 mg capsule TAKE 1 CAPSULE BY MOUTH TWICE DAILY NEEDED FOR CONSTIPA TION 11/11 completed Not Available Not Available Not Available ibuprofen 600 mg tablet 11/11 completed Not Available Not Available Not Available albuterol sulfate HFA 90 mcg/actua tion aerosol inhaler INHALE 1 PUFF BY MOUTH EVERY 4 HOURS NEEDED FOR SHORTNES S OF BREATH OR WHEEZING 03/14 completed Not Available Not Available Not Available Unisom (doxylami ne) 10/20 completed Not Available Not Available Not Available 11/11 completed Not Available Not Available Not Available Vitamin B6 10/20 completed Not Available Not Available Not Available Isibloom 0.15 mg-0.03 mg tablet take 1 tablet by oral route every day 02/22 completed Prescrib ed Elsewher e: Yes Loca tion: [facility] M odify By: obed garzaunter DateTime : 10/27/19 10:30:00 AM Not Available Not Available Not Available Maru Marin Breast Pump 11/11 completed Not Available Not Available Not Available Vitals Date Recorded Body height Body mass index (BMI) Body weight Systolic blood pressure Diastolic blood pressure Provider Name and Address Organization Details Last Updated DateTime 03/26/2024 175.26 cm 30 kg/m2 45509.25 g 112 mm[Hg] 68 mm[Hg] Annie Da Silva [facility] 5 14:12:49 Date Recorded Body height Body mass index (BMI) Body weight Systolic blood pressure Diastolic blood pressure Provider Name and Address Organization Details Last Updated DateTime 09/26/2023 175.26 cm 33.2 kg/m2 214995.2 8325 g 120 mm[Hg] 79 mm[Hg] Ryann Little [facility] 4 11:18:28 Date Recorded Body height Body mass index (BMI) Body weight Systolic blood pressure Diastolic blood pressure Provider Name and Address Organization Details Last Updated DateTime 10/01/2023 175.26 cm 33.5 kg/m2 547788.4 7 g 119 mm[Hg] 74 mm[Hg] Annie Da Silva [facility] 4 10:46:21 Date Recorded Body height Body mass index (BMI) Body weight Systolic blood pressure Diastolic blood pressure Provider Name and Address Organization Details Last Updated DateTime 11/12/2023 175.26 cm 30.4 kg/m2 48611.03 g 127 mm[Hg] 88 mm[Hg] Annie Da Silva [facility] 4 10:40:17 Social History Question Answer Notes LastModified by Organizat ion Details LastModified Time Tobacco Smoking Status [facility] 03/14/2023 11:51:25 Do You Have An Advance Directive? No [email or web address] Information n ot available 05/19/2020 If You Are , What Was Your Level Of Alcohol Consumption Prior To ? Occasional [email or web address] Information not available 07/02/2023 Are You Blind Or Do You Have Difficulty Seeing? No [email or web address] Information n ot available 05/19/2020 What Is Your Level Of Caffeine Consumption? None [email or web address] Information not available 05/19/2020 How Much Tobacco Do You Chew? None [email or web address] Information not available 05/19/2020 In The 14 Days Before Symptom Onset, Have You Had Close Contact With A Laboratory-confirm ed COVID-19 While That Case Was Ill? No [email or web address] Information n ot available 05/19/2020 In The 14 Days Before Symptom Onset, Have You Had Close Contact With A Person Who Is Under Investigation For COVID-19 While That Person Was Ill? No [email or web address] Information not available 05/19/2020 Have You Been To An Area Known To Be High Risk For COVID-19? No Information not available 05/19/2020 Are You Deaf Or Do You Have Serious Difficulty Hearing? No [email or web address] Information not available 05/19/2020 What Type Of Diet Are You Following? REGULAR [email or web address] Information n ot available 05/19/2020 What Is The Highest Grade Or Level Of School You Have Completed Or The Highest Degree You Have Received? OR61452-8 [email or web address] Information not available 05/19/2020 Are There Any Guns Present In Your Home? No [email or web address] Information not available 05/19/2020 What Was The Date Of Your Most Recent Tobacco Screening? 03/26/2024 [email or web address] Information not available 03/26/2024 Have You Ever Been Counseled For Unhealthy Alcohol Use? No [email or web address] Information not available 03/14/2023 Do You Use Your Seat Belt Or Car Seat Routinely? Yes [email or web address] Information not available 05/19/2020 Do You Have Smoke And Carbon Monoxide Detectors In Your Home? Yes [email or web address] Information not available 05/19/2020 How Much Tobacco Do You Smoke? No [email or web address] Information not available 11/17/2019 Do You Use Sunscreen Routinely? Yes Information not available 05/19/2020 Has Tobacco Cessation Counseling Been Provided? No [email or web address] Information not available 03/14/2023 Have You Used IV Drugs? No [email or web address] Information not available 05/19/2020 Do You Have Difficulty Walking Or Climbing Stairs? No [email or web address] Information not available 07/02/2023 Sex: Unknown Functional Status Question Answer Note LastModified by Organizat ion Details LastModified Time Do you use any illicit or recreational drugs? No [email or web address] Information not available 05/19/2020 Do you or have you ever used any other forms of tobacco or nicotine? No [email or web address] Information not available 03/14/2023 What is your level of alcohol consumption? None [email or web address] Information not available 07/02/2023 Do you or have you ever used smokeless tobacco? Never used smokeless tobacco Information not available 03/14/2023 Are you able to walk? YESWOREST Information not available 05/19/2020 Are you able to care for yourself? 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 No [email or web address] Information not available 07/02/2023 Do you or have you ever used e-cigarettes or vape? Never used electronic cigarettes [email or web address] Information not available 03/14/2023 What is your exercise level? Occasional [email or web address] Information not available 11/17/2019 Mental Status Question Answer Note LastModified by Organization D etails LastModified Time Do you feel stressed (tense, restless, nervous, or anxious, or unable to sleep at night)? [id number] [email or web address] Information not available 05/19/2020 Family History Relationship Description Onset Age of this Age Resolved Age Notes LastModified by Organization Details LastModified Time Father No current problems or disability [email or web address] Not available 11/01 21:29:53 Mother No current problems or disability [email or web address] Not available 11/01 21:29:53 Medical History Condition Response Allergies (Food, seasonal, environmental ) Y Other N Breast Cancer N Drug/Latex Allergies/Reactions N Blood Transfusion N Dermatologic Disorders N Lung Disease N Defects or Inherited Disease N Breast Problem Y Gestational Diabetes N Hematologic disorders N Anesthesia Complications N History of STI N Deep Vein Thrombosis N Polycystic ovary syndrome N Anxiety Disorder N Autoimmune disease N Arthritis N Infertility N Polyps N Acid Reflux (GERD) N History of abnormal pap N Cancer N Stroke N Varicosities N Neurologic/Epilepsy N Endometriosis N High Cholesterol N Headaches N Fibromyalgia N Kidney Disease N Heart Problems N Kidney or Bladder Problems N Thyroid Problems N GI Problems N Eating Disorder N Anemia N Art (IVF or FET) N Psychiatric Illness N Ovarian Cancer N Diabetes N Pulmonary (TB, Asthma) N Hepatitis/Liver Disease N No Past Medical History N Eczema N Urinary Tract Infection N Abuse/Domestic Violence N Asthma Y Trauma/Violence N Depression/ depression N Heart Disease N Pre-Eclampsia N Hypertension N Osteoporosis N Thrombophilias N Gynecological History Statement/Question Response Date of Last Mammogram 03/03/2017 Date of LMP 03/09/2024 N STIs/STDs N Was last menstrual period normal Y Current Control Method None Age at First Child 30 Sexually Active? Y Date of DEXA bone scan Date of Last Pap Smear 03/26/2024 Sexual Problems? N Desired Control Method LMP Approximate N Obstetrics History GPAL:G 2 P 2 0 0 2 Type Value Full Term 2 Living 2 Total 2 Past Encounters Encounter ID Performer Location Encounter Start Date Encounter Closed Date Diagnosis/Indication Diagnosis SNOMED-CT Code Diagnosis ICD10 Code Diagnosis Note [id number] Marian Austin [facility] [address] [address] 11/05/2019 16:17:13 11/07/2019 16:56:10 Gynecologic examination 42313303 Z01.419 Suggest Calcium with Vitamin D if not eating in diet. Patient advised to get annual flu shot. Recommend yearly physicals and preform monthly breast exams. Genetic testing is available for patients with family history of cancer. Engage in safe sexual practices, use condoms. Encouraged to have daily exercise. Avoid tobacco and illicit drugs, moderation of alcohol. If BMI greater than 25 dietary consult advised. If you have any questions please call or email. [id number] [facility] [address],[facility] [place] [address] 02/23/2020 10:28:01 02/23/2020 11:02:14 Vaginitis 73842713 N76.0 Suspect the start of a yeast infection. We agreed to treat with diflucan & mycolog ointment. Will send vag cx's to ensure no other issues. Time spent in visit is a total of 15 mins with at least 50% of visit consisting of counseling and review of plan of care. [id number] [facility] [address],[facility] [place] [address] 05/19/2020 13:56:17 05/19/2020 15:46:10 Gynecologic examination 58335932 Z01.419 Suggest Calcium with Vitamin D if not eating in diet. Patient advised to get annual flu shot. Recommend yearly physicals and preform monthly breast exams. Genetic testing is available for patients with family history of cancer. Engage in safe sexual practices, use condoms. Encouraged to have daily exercise. Avoid tobacco and illicit drugs, moderation of alcohol. If BMI greater than 25 dietary consult advised. If you have any questions please call or email. Amenorrhea 58936360 N91. 2 [id number] John Mcghee MD [facility] [address],[place] [address] 05/19/2020 13:53:48 05/22/2020 08:01:10 [id number] John Mcghee MD [facility] [address],[place] [address] 06/16/2020 13:51:32 06/16/2020 15:26:55 screening 155106740 Z36.87 [id number] John Mcghee MD [facility] [address],[place] [address] 06/16/2020 13:51:53 06/16/2020 15:38:30 Routine care 749521955 Z34.91 [id number] John Mcghee MD [facility] [address],[place] [address] 06/23/2020 16:00:17 06/24/2020 23:53:32 [id number] Marian Austin [facility] [address],[place] [address] 07/14/2020 11:58:49 07/14/2020 13:27:49 Routine care 149135776 Z34.92 [id number] Marian Austin [facility] [address],[place] [address] 08/11/2020 11:31:19 08/11/2020 14:03:02 Routine care 448692006 Z34.92 [id number] John Mcghee MD [facility] [address],[place] [address] 08/11/2020 11:30:08 08/11/2020 12:59:53 screening for malformation 417431165 Z36.3 [id number] MD Zackary Avelar [address],[place] [address] 09/06/2020 11:03:38 09/06/2020 14:04:52 screening 834152528 Z36.2 [id number] MD Zackary Avelar [address],[place] [address] 09/06/2020 11:05:05 09/06/2020 14:03:54 Routine care 145801608 Z34.02 [id number] Misty Garcia MD [facility] [address],[place] [address] 10/04/2020 11:42:23 10/04/2020 13:20:33 Routine care 178870120 Z34.02 [id number] John Mcghee MD [facility] [address],[place] [address] 10/13/2020 09:06:23 10/16/2020 00:14:33 [id number] Misty Garcia MD [facility] [address],[place] [address] 10/20/2020 10:18:23 10/20/2020 14:12:36 Routine care 797835108 Z34.02 [id number] Misty Garcia MD [facility] [address],[place] [address] 11/03/2020 10:46:25 11/03/2020 14:36:38 Routine care 139061135 Z34.02 [id number] John Mcghee MD [facility] [address],[place] [address] 11/10/2020 09:28:51 11/10/2020 10:18:19 Uterine size for dates discrepancy 246290363 O26.843 Z3A.33 [id number] Misty Garcia MD [facility] [address],[place] [address] 11/17/2020 10:44:45 11/17/2020 12:16:54 Routine care 399619157 Z34.02 [id number] MD Zackary Avelar [address],[place] [address] 12/01/2020 11:37:47 12/01/2020 12:17:12 Routine care 680241776 Z34.02 [id number] Marian Austin [facility] [address],[place] [address] 12/08/2020 13:47:26 12/08/2020 14:48:26 Routine care 906814787 Z34.92 [id number] MD Zackary Avelar [address],[place] [address] 12/15/2020 10:32:36 12/15/2020 11:19:52 Routine care 338887993 Z34.02 [id number] MD Zackary Avelar [address],[place] [address] 12/22/2020 10:23:58 12/22/2020 11:24:08 Routine care 724744497 Z34.02 [id number] MD Zackary Avelar [address],[place] [address] 12/29/2020 10:26:35 12/29/2020 12:44:22 Routine care 329083140 Z34.02 [id number] MD Zackary Avelar [address],[place] [address] 01/09/2021 17:20:15 01/09/2021 18:14:19 Obstetric perineal wound disruption - delivered with complication 235574736 O90.1 [id number] MD Zackary Avelar [address],[place] [address] 01/16/2021 11:00:55 01/16/2021 11:03:09 [id number] MD Zackary Avelar [address],[place] [address] 01/22/2021 14:10:07 01/22/2021 14:54:10 Postoperative visit 881147164 Z09 [id number] MD Zackary Avelar [address],[place] [address] 02/06/2021 14:58:16 02/06/2021 15:31:58 [id number] MD Zackary Avelar [address],[place] [address] 03/06/2021 15:48:47 03/07/2021 10:29:43 Obstetric perineal wound disruption - delivered with complication 400400014 O90.1 [id number] Misty Garcia MD [facility] [address],[place] [address] 05/25/2021 15:51:18 05/25/2021 16:37:35 Gynecologic examination 03539290 Z01.419 [id number] John Mcghee MD [facility] [address],[place] [address] 03/14/2023 11:51:10 03/14/2023 13:14:59 [id number] [facility] [address],[place] [address] 03/14/2023 11:51:41 03/14/2023 13:19:26 Amenorrhea 46586379 N91.2 reviewed office precaution s and folderf/u 12 week new ob and first look [id number] [facility] [address],[place] [address] 03/26/2024 13:55:41 03/26/2024 14:36:05 Gynecologic examination 41437971 Z11.51 Z11.3 Suggest Calcium with Vitamin D if not eating in diet. Patient advised to get annual flu shot. Recommend yearly physicals and preform monthly breast exams. Genetic testing is available for patients with family history of cancer. Engage in safe sexual practices, use condoms. Encouraged to have daily exercise. Avoid tobacco and illicit drugs, moderation of alcohol. If BMI greater than 25 dietary consult advised. If you have any questions please call or email. [id number] John Mcghee MD [facility] [address],[place] [address] 04/10/2023 09:43:58 04/10/2023 10:29:18 screening 662128315 Z36.82 Z36.87 Z3A.12 [id number] Marian Austin CNM [facility] [address],[place] [address] 04/11/2023 09:30:11 04/11/2023 09:58:35 Gestation period, 12 weeks 69276908 Z3A.12 [id number] [facility] [address],[place] [address] 05/09/2023 16:25:48 05/09/2023 17:00:53 Routine care 819195496 Z34.92 [id number] John Mcghee MD [facility] [address],[place] [address] 06/06/2023 10:22:03 06/06/2023 11:39:23 screening 955322203 Z36.3 Z3A.20 [id number] [facility] [address],[place] [address] 06/06/2023 10:23:03 06/06/2023 12:02:44 Routine care 560514901 Z34.92 [id number] John Mcghee MD [facility] [address],[place] [address] 06/27/2023 16:23:07 06/27/2023 17:08:51 Intrauterine synechiae 778058265 N85.6 O34.12 Z3A.23 [id number] [facility] [address],[place] [address] 07/02/2023 09:23:10 07/02/2023 09:54:56 Routine care 707017029 Z34.92 [id number] John Mcghee MD [facility] [address],[place] [address] 08/01/2023 09:08:45 08/01/2023 09:54:58 Uterine fibroids affecting 86879729 O34.13 Z3A.28 [id number] [facility] [address],[place] [address] 08/01/2023 09:09:30 08/01/2023 09:58:22 Routine care 853781921 Z34.92 [id number] [facility] [address],[place] [address] 08/13/2023 09:45:49 08/13/2023 10:43:44 Routine care 166596711 Z34.92 [id number] John Mcghee MD [facility] [address],[place] [address] 08/26/2023 10:29:04 08/26/2023 11:01:58 Uterine fibroids affecting 28436298 O34.13 Z3A.31 [id number] Marian Austin [facility] [address],[place] [address] 08/27/2023 09:37:58 08/27/2023 10:06:41 Routine care 696184863 Z34.92 [id number] Marian Austin [facility] [address],[place] [address] 09/12/2023 14:53:34 09/12/2023 16:10:15 Routine care 258660678 Z34.92 [id number] [facility] [address],[place] [address] 09/26/2023 10:05:17 09/26/2023 12:01:33 Routine care 301714807 Z34.92 [id number] John Mcghee MD [facility] [address],[place] [address] 09/26/2023 10:04:58 09/26/2023 11:30:25 Large for gestation age fetus 627797791 O36.63X0 O34.13 Z3A.36 [id number] Marian Austin [facility] [address],[place] [address] 10/01/2023 10:24:16 10/01/2023 11:12:00 Gestation period, 36 weeks 68206690 Z3A.36 [id number] Marian Austin [facility] [address],[place] [address] 11/12/2023 10:29:17 11/12/2023 11:33:34 care 962162477 Z39.2 doing wellf/u march 2024 [facility] Concerns Section Related Observation LastModified by Organization Detai ls LastModified Time None Recorded Concern Status LastModified by Organization Details LastModified Time None Recorded Advance Directives Directive N: Payers Encounter Date Sequence Insurance Name Policy Number Policy Renner Covered Member ID Renner Member ID Guarantor Name 09/26/2023 1 [place] [address] [id number] Consuelo Francoeur 09/26/2023 1 [place] [address] [id number] Consuelo Francoeur 10/01/2023 1 [place] [address] [id number] Consuelo Francoeur 11/12/2023 1 [place] [address] [id number] Consuelo Francoeur 03/26/2024 1 [place] [address] [id number] Consuelo Francoeur Notes Date Note Type Note Provider Name and Address Organization Details Recorded Time 11/12/2023 text/html VisitReported bypatient.Quality:N Context:complicatio ns of : none; complications of labor: none; complications: none; feeding choice: bottle; good support from partner/family; resumed menstrual bleeding no Associated Symptoms:no abnormal bleeding; no vaginal discharge; no pelvic pain; laceration well healed; no constipation; no fecal incontinence; no dysuria Contraception Plan:declines contraceptionNotes: doing well! Annie holman [facility] 11/12/2023 21:10:55 03/26/2024 text/html Annual GYNReport ed bypatient.History:n o gynecologic complaints Menstrual cycle:Normal menses Urinary symptoms:No hematuria; No incontinence Vulva:No genital lesion Vagina:Normal vaginal discharge Breast:No breast pain; No breast lump; No nipple discharge Sexual complaints:No sexual complaints; No pain during intercourse; Normal libido Menopausal Symptoms:No menopausal symptoms; Normal vaginal lubrication Psychological symptoms:No depression; No anxiety; No PMDD Preventive measures:Encourage self breast examination; Encourage regular exercise; Encourage no tobacco useNotes:pap up to date doing well, cycles regular Marian Austin CNM [address], [place], [address], [facility] 03/26/2024 14:33:26 OBGyn Episode Ob Episode Information Episode Created Date Number of Fetuses Patient Bloodtype Patient rh Status Prepregnancy Weight lbs Domestic Partner Domestic Partner Phone Father Name Track [employer] Supervisor Status 06/17/19 21 1 AB Positive 187 CLOSED Fetus Data First Name Last Name Admitted to NICU Weight (g) Sex Living Outcome Pediatric Complications Fetus ID Race Codes Race Delivery Type 3883.88 15 F true Full Term [id number] Vaginal Delivery Dinesh Calculation Initial Dinesh Date Initial Exam Date Initial Exam Provider Initial Ultrasound Date Last Menstrual Period Date Ultra Sound Weeks Gestation 12/29/2020 06/16/2020 05/19/2020 03/24/2020 8 Eighteen To Twenty Week Dinesh Update Ultra Sound Date Fundal Height At Umbil Quickening Date Ultra Sound Latest Weeks Gestation Final Dinesh Confirmed By Final Dinesh Confirmed Date Final Dinesh Date Ultra Sound Latest Days Gestation 0 [email or web address] 06/16/2020 12/30/19 21 0 Pre- Flowsheet Flowsheet Date 05/19/2020 Dacosta Score Blood Edema Fundus Height Fundus Units Glucose Ketones Leukocytes Nitrite Labor Signs Protein Cervic Dilation Cervic Effacement Cervic Station Type Weight in lbs Pre/Post Dialysis Refused BP Diastolic BP Location Tested BP Systolic BP Type Fetus Heart Rate Present Fetus Movement Comments Flowsheet Date 06/16/2020 Dacosta Score Blood Edema Fundus Height Fundus Units Glucose Ketones Leukocytes Nitrite Labor Signs Protein Cervic Dilation Cervic Effacement Cervic Station Type Weight in lbs Pre/Post Dialysis Refused BP Diastolic BP Location Tested BP Systolic BP Type Fetus Heart Rate Present Fetus Movement Comments Flowsheet Date 06/16/2020 Dacosta Score Blood Edema Fundus Height Fundus Units Glucose Ketones Leukocytes Nitrite Labor Signs Protein Cervic Dilation Cervic Effacement Cervic Station Type Weight in lbs Pre/Post Dialysis Refused Weight 188.147661103481 BP Diastolic BP Location Tested BP Systolic BP Type 71 R arm 111 sitting Fetus Heart Rate Present Fetus Movement Comments This patient is a 29-year-ol d: 1 para 0 who presents for initial care. Her medical, surgical, social and obstetric hx is unremarkable. She will begin routine care. She is considering genetic testing. She will come back next week for repeat 1st look. Flowsheet Date 06/23/2020 Dacosta Score Blood Edema Fundus Height Fundus Units Glucose Ketones Leukocytes Nitrite Labor Signs Protein Cervic Dilation Cervic Effacement Cervic Station Type Weight in lbs Pre/Post Dialysis Refused BP Diastolic BP Location Tested BP Systolic BP Type Fetus Heart Rate Present Fetus Movement Comments Flowsheet Date 07/14/2020 Dacosta Score Blood Edema Fundus Height Fundus Units Glucose Ketones Leukocytes Nitrite Labor Signs Protein Cervic Dilation Cervic Effacement Cervic Station neg none trace Type Weight in lbs Pre/Post Dialysis Refused Weight 191.510756591727 BP Diastolic BP Location Tested BP Systolic BP Type 84 132 Fetus Heart Rate Present A 155 Fetus Movement A No Comments PATIENT STATES THAT HAVING S OME PAIN, NAUSEA AND VOMITING, reviewed precautions, plan anatomy scan at the next visit Flowsheet Date 08/11/2020 Dacosta Score Blood Edema Fundus Height Fundus Units Glucose Ketones Leukocytes Nitrite Labor Signs Protein Cervic Dilation Cervic Effacement Cervic Station Type Weight in lbs Pre/Post Dialysis Refused BP Diastolic BP Location Tested BP Systolic BP Type Fetus Heart Rate Present Fetus Movement Comments Flowsheet Date 08/11/2020 Dacosta Score Blood Edema Fundus Height Fundus Units Glucose Ketones Leukocytes Nitrite Labor Signs Protein Cervic Dilation Cervic Effacement Cervic Station trace Type Weight in lbs Pre/Post Dialysis Refused Weight 197.887701331363 BP Diastolic BP Location Tested BP Systolic BP Type 65 R arm 114 sitting Fetus Heart Rate Present Fetus Movement A Yes Comments anatmy incomplete, precautio ns reviewed, f/u 4 weeks with f/u anatomy Flowsheet Date 09/06/2020 Dacosta Score Blood Edema Fundus Height Fundus Units Glucose Ketones Leukocytes Nitrite Labor Signs Protein Cervic Dilation Cervic Effacement Cervic Station Type Weight in lbs Pre/Post Dialysis Refused BP Diastolic BP Location Tested BP Systolic BP Type Fetus Heart Rate Present Fetus Movement Comments Flowsheet Date 09/06/2020 Dacosta Score Blood Edema Fundus Height Fundus Units Glucose Ketones Leukocytes Nitrite Labor Signs Protein Cervic Dilation Cervic Effacement Cervic Station neg none trace Type Weight in lbs Pre/Post Dialysis Refused Weight 206.012863906397 BP Diastolic BP Location Tested BP Systolic BP Type 72 122 Fetus Heart Rate Present A 155 Fetus Movement A Yes Comments Doing well. Good FM. US toda y anatomy now complete. Some sciatic pain, comfort measures discussed. GCT next. Discussed Tdap, will get. Flowsheet Date 10/04/2020 Dacosta Score Blood Edema Fundus Height Fundus Units Glucose Ketones Leukocytes Nitrite Labor Signs Protein Cervic Dilation Cervic Effacement Cervic Station neg trace 30 trace Type Weight in lbs Pre/Post Dialysis Refused Weight 210.708227692473 BP Diastolic BP Location Tested BP Systolic BP Type 67 113 Fetus Heart Rate Present A 140 Fetus Movement A Yes Comments Doing well. Good FM. GCT tod ay. Has had COVID vaccine. Will do Tdap. Questions answered. Flowsheet Date 10/13/2020 Dacosta Score Blood Edema Fundus Height Fundus Units Glucose Ketones Leukocytes Nitrite Labor Signs Protein Cervic Dilation Cervic Effacement Cervic Station Type Weight in lbs Pre/Post Dialysis Refused BP Diastolic BP Location Tested BP Systolic BP Type Fetus Heart Rate Present Fetus Movement Comments Flowsheet Date 10/20/2020 Dacosta Score Blood Edema Fundus Height Fundus Units Glucose Ketones Leukocytes Nitrite Labor Signs Protein Cervic Dilation Cervic Effacement Cervic Station neg trace 31 trace Type Weight in lbs Pre/Post Dialysis Refused Weight 212.60280385475 BP Diastolic BP Location Tested BP Systolic BP Type 74 113 Fetus Heart Rate Present A 140 Fetus Movement A Yes Comments Doing well. Tdap before next visit. No concerns. Flowsheet Date 11/03/2020 Dacosta Score Blood Edema Fundus Height Fundus Units Glucose Ketones Leukocytes Nitrite Labor Signs Protein Cervic Dilation Cervic Effacement Cervic Station neg 1+ 35 trace Type Weight in lbs Pre/Post Dialysis Refused Weight 216.039671459511 BP Diastolic BP Location Tested BP Systolic BP Type 68 110 Fetus Heart Rate Present A 130 Fetus Movement A Yes Comments Doing welll. Mild edema. BP great. Tdap done. S>D, will add US next visit. Flowsheet Date 11/10/2020 Dacosta Score Blood Edema Fundus Height Fundus Units Glucose Ketones Leukocytes Nitrite Labor Signs Protein Cervic Dilation Cervic Effacement Cervic Station Type Weight in lbs Pre/Post Dialysis Refused BP Diastolic BP Location Tested BP Systolic BP Type Fetus Heart Rate Present Fetus Movement Comments Flowsheet Date 11/17/2020 Dacosta Score Blood Edema Fundus Height Fundus Units Glucose Ketones Leukocytes Nitrite Labor Signs Protein Cervic Dilation Cervic Effacement Cervic Station neg trace 35 trace Type Weight in lbs Pre/Post Dialysis Refused Weight 216.487433634827 BP Diastolic BP Location Tested BP Systolic BP Type 72 114 Fetus Heart Rate Present A 140 Fetus Movement A Yes Comments Doing very well. Great FM. U S last week for S>D 45%. GBS next visit, discussed. Letter given for to not do jury duty in Dec. Flowsheet Date 12/01/2020 Dacosta Score Blood Edema Fundus Height Fundus Units Glucose Ketones Leukocytes Nitrite Labor Signs Protein Cervic Dilation Cervic Effacement Cervic Station neg trace 37 trace 0cm Type Weight in lbs Pre/Post Dialysis Refused Weight 218.061449289371 BP Diastolic BP Location Tested BP Systolic BP Type 71 108 Fetus Heart Rate Present A 150 Fetus Movement A Yes Comments Doing well. One contraction she noticed. GBS done and discussed. Labor precautions. FU weekly. Flowsheet Date 12/08/2020 Dacosta Score Blood Edema Fundus Height Fundus Units Glucose Ketones Leukocytes Nitrite Labor Signs Protein Cervic Dilation Cervic Effacement Cervic Station neg trace trace 1cm 60% Type Weight in lbs Pre/Post Dialysis Refused Weight 221.190953302872 BP Diastolic BP Location Tested BP Systolic BP Type 72 108 Fetus Heart Rate Present A 148 Fetus Movement A Yes Comments patient states that having s ome discharge and swelling. precautions reviewed gbs negative f/u one week Flowsheet Date 12/15/2020 Dacosta Score Blood Edema Fundus Height Fundus Units Glucose Ketones Leukocytes Nitrite Labor Signs Protein Cervic Dilation Cervic Effacement Cervic Station neg trace 37 trace 1cm 60% Type Weight in lbs Pre/Post Dialysis Refused Weight 221.586858399854 BP Diastolic BP Location Tested BP Systolic BP Type 67 102 Fetus Heart Rate Present A 130 Fetus Movement A Yes Comments Doing well. GBS neg. Great F M. Precautions given. FU weekly. Flowsheet Date 12/22/2020 Dacosta Score Blood Edema Fundus Height Fundus Units Glucose Ketones Leukocytes Nitrite Labor Signs Protein Cervic Dilation Cervic Effacement Cervic Station neg trace 38 trace 1cm 50% -3 Type Weight in lbs Pre/Post Dialysis Refused Weight 220.125877686758 BP Diastolic BP Location Tested BP Systolic BP Type 83 138 Fetus Heart Rate Present A 140 Fetus Movement A Yes Comments NOt sleeping well, getting a nxious about delivery. Will schedule IOL for between 40-41 weeks. Precautions given. Flowsheet Date 12/29/2020 Dacosta Score Blood Edema Fundus Height Fundus Units Glucose Ketones Leukocytes Nitrite Labor Signs Protein Cervic Dilation Cervic Effacement Cervic Station neg trace 39 trace 1cm 50% Type Weight in lbs Pre/Post Dialysis Refused Weight 220.644759590484 BP Diastolic BP Location Tested BP Systolic BP Type 79 121 Fetus Heart Rate Present A 140 Fetus Movement A Yes Comments , IOL scheduled Friday. Discussed IOL process. Questions answered. Precautions given. Flowsheet Date 01/09/2021 Dacosta Score Blood Edema Fundus Height Fundus Units Glucose Ketones Leukocytes Nitrite Labor Signs Protein Cervic Dilation Cervic Effacement Cervic Station Type Weight in lbs Pre/Post Dialysis Refused Weight 204.458864349125 BP Diastolic BP Location Tested BP Systolic BP Type 80 126 Fetus Heart Rate Present Fetus Movement Comments Flowsheet Date 01/15/2021 Dacosta Score Blood Edema Fundus Height Fundus Units Glucose Ketones Leukocytes Nitrite Labor Signs Protein Cervic Dilation Cervic Effacement Cervic Station Type Weight in lbs Pre/Post Dialysis Refused BP Diastolic BP Location Tested BP Systolic BP Type Fetus Heart Rate Present Fetus Movement Comments Menstrual History Last Menstrual Date Menses Monthly On Bcp Conception Prior Menses Frequency Hcg Plus Date Menarche Onset Age 0103/24/2020 Genetic Screening And Infection History Question Response Note Mental Retardation/Autism false Patient's Age Will Be 35 Years Or Older At Estim ated Date of Delivery false Thalassemia (Bahraini, Kazakh, Mediterranean, Or Background): MCV < 80 false Neural Tube Defect (Meningomyelocele, Spina Bifi da, Or Anencephaly) false Congenital Heart Defect false Down Syndrome false Robert-Sachs (eg, Voodoo, Cajun, Slovak-Marshallese) f alse Lenin Disease false Sickle Cell Disease Or Trait () false Hemophilia Or Other Blood Disorders false Muscular Dystrophy false Cystic Fibrosis false Benewah's Chorea false Intellectual Disability/Autism false If Yes, Was Person Tested For Fragile X? false Other Inherited Genetic Or Chromosomal Disorder false Maternal Metabolic Disorder (eg, Type 1 Diabetes , PKU) false Patient Or Baby's Father Had A Child With Defects Not Listed Above false Recurrent Loss, Or A Stillbirth false Medications (including Suppl ements, Vitamins, Herbs, OTC Drugs), Illicit/Recreational Drugs, Alcohol false If Yes, Agent(s) And Strength/Dosage false Any Other Genetic History false Live With Someone With TB Or Exposed To TB false Patient Or Partner Has History Of Genital Herpes false Rash Or Viral Illness Since Last Menstrual Perio d false History Of STD, Gonorrhea, Chlamydia, HPV, Syphi lis false Other Infection History false History of HIV false History of Hepatitis false Prior GBS-infected child false Hemoglobinopathy Or Carrier false Other Structural Defect false Recent Travel History Outside of Country false Delivery Information Delivery Date Delivery Type Labor Anesthesia Weeks Gestation Incision Type Labor Labor Length Hrs Delivered By Post Complications Tubal Sterilization Discharge Date Comments [facility] Marian Austin CNM [facility] Discharge Information Feeding Method Contraceptive Method Maternal HG B and HCT Levels Breast Ob Episode Information Episode Created Date Number of Fetuses Patient Bloodtype Patient rh Status Prepregnancy Weight lbs Domestic Partner Domestic Partner Phone Father Name Track [employer] Supervisor Status 04/11/19 24 1 AB Positive [address] ur CLOSED Fetus Data First Name Last Name Admitted to NICU Weight (g) Sex Living Outcome Pediatric Complications Fetus ID Race Codes Race Delivery Type 3855.53 2 F true Full Term nuchal and bodyx1 [id number] Vaginal Delivery Problems Problem Notes declines CF/NIPSsynechiae - not visualized on 06/26 u/s Problem Name Start Date End Date Resolution Snomed Code Not e Large for gestation age fetus 09/26/[id number] Dinesh Calculation Initial Dinesh Date Initial Exam Date Initial Exam Provider Initial Ultrasound Date Last Menstrual Period Date Ultra Sound Weeks Gestation 10/23/2023 03/14/2023 03/14/2023 01/16/2023 8 Eighteen To Twenty Week Dinesh Update Ultra Sound Date Fundal Height At Umbil Quickening Date Ultra Sound Latest Weeks Gestation Final Dinesh Confirmed By Final Dinesh Confirmed Date Final Dinesh Date Ultra Sound Latest Days Gestation 0 [email or web address] 04/11/2023 10/23/19 24 0 Pre-erin Flowsheet Flowsheet Date 04/11/2023 Dacosta Score Blood Edema Fundus Height Fundus Units Glucose Ketones Leukocytes Nitrite Labor Signs Protein Cervic Dilation Cervic Effacement Cervic Station neg none none trace Type Weight in lbs Pre/Post Dialysis Refused Weight 195.204673938766 BP Diastolic BP Location Tested BP Systolic BP Type 66 100 Fetus Heart Rate Present Fetus Movement A No Comments hx uncomplicated vaginal del savana in 2020 (adaline) reviewed education, precautions reviewed us wnl f/u 4 weeks Flowsheet Date 05/09/2023 Dacosta Score Blood Edema Fundus Height Fundus Units Glucose Ketones Leukocytes Nitrite Labor Signs Protein Cervic Dilation Cervic Effacement Cervic Station neg none none trace Type Weight in lbs Pre/Post Dialysis Refused Weight 199.300886494508 BP Diastolic BP Location Tested BP Systolic BP Type 73 127 Fetus Heart Rate Present A 144 Fetus Movement A No Comments patient is having some nause a. some mild baby blues, declines treatment at this time, continue to monitor, plan anatomy scan in 4 weeks, education and precautions Flowsheet Date 06/06/2023 Dacosta Score Blood Edema Fundus Height Fundus Units Glucose Ketones Leukocytes Nitrite Labor Signs Protein Cervic Dilation Cervic Effacement Cervic Station Type Weight in lbs Pre/Post Dialysis Refused BP Diastolic BP Location Tested BP Systolic BP Type Fetus Heart Rate Present Fetus Movement Comments Flowsheet Date 06/06/2023 Dacosta Score Blood Edema Fundus Height Fundus Units Glucose Ketones Leukocytes Nitrite Labor Signs Protein Cervic Dilation Cervic Effacement Cervic Station Type Weight in lbs Pre/Post Dialysis Refused Weight 207.355120886293 BP Diastolic BP Location Tested BP Systolic BP Type 73 113 Fetus Heart Rate Present Fetus Movement Comments baby blues still present, de clinjose tx at this time, at bs, supportive, anatomy complete f/u 4 weeks, education and precautions reviewed Flowsheet Date 06/27/2023 Dacosta Score Blood Edema Fundus Height Fundus Units Glucose Ketones Leukocytes Nitrite Labor Signs Protein Cervic Dilation Cervic Effacement Cervic Station Type Weight in lbs Pre/Post Dialysis Refused BP Diastolic BP Location Tested BP Systolic BP Type Fetus Heart Rate Present Fetus Movement Comments Flowsheet Date 07/02/2023 Dacosta Score Blood Edema Fundus Height Fundus Units Glucose Ketones Leukocytes Nitrite Labor Signs Protein Cervic Dilation Cervic Effacement Cervic Station neg none 24 none trace Type Weight in lbs Pre/Post Dialysis Refused Weight 214.108000845049 BP Diastolic BP Location Tested BP Systolic BP Type 71 116 Fetus Heart Rate Present A 155 Present Fetus Movement A Yes Comments reviewed US growth wnl, fibr oids x 3, will continue to monitor, precautions and education, f/u 4 weeks plan GCT Flowsheet Date 08/01/2023 Dacosta Score Blood Edema Fundus Height Fundus Units Glucose Ketones Leukocytes Nitrite Labor Signs Protein Cervic Dilation Cervic Effacement Cervic Station Type Weight in lbs Pre/Post Dialysis Refused BP Diastolic BP Location Tested BP Systolic BP Type Fetus Heart Rate Present Fetus Movement Comments Flowsheet Date 08/01/2023 Dacosta Score Blood Edema Fundus Height Fundus Units Glucose Ketones Leukocytes Nitrite Labor Signs Protein Cervic Dilation Cervic Effacement Cervic Station none Type Weight in lbs Pre/Post Dialysis Refused Weight 218.865479887831 BP Diastolic BP Location Tested BP Systolic BP Type 69 105 Fetus Heart Rate Present Fetus Movement A Yes Comments Patient states that has rash on arm. ok for lotrisone, appears fungal, will monitor, EFW 87%, fibroids stable, vertex, precautions and education, f/u two weeks. gct today Flowsheet Date 08/13/2023 Daocsta Score Blood Edema Fundus Height Fundus Units Glucose Ketones Leukocytes Nitrite Labor Signs Protein Cervic Dilation Cervic Effacement Cervic Station none 31 Type Weight in lbs Pre/Post Dialysis Refused Weight 221.128491785412 BP Diastolic BP Location Tested BP Systolic BP Type 69 118 Fetus Heart Rate Present A 147 Fetus Movement A Yes Comments Patient states that is havin g some back pain. resolving doing heat, stretching, passed GTT, has rpt growth scheduled f/u 2 weeks Flowsheet Date 08/26/2023 Dacosta Score Blood Edema Fundus Height Fundus Units Glucose Ketones Leukocytes Nitrite Labor Signs Protein Cervic Dilation Cervic Effacement Cervic Station Type Weight in lbs Pre/Post Dialysis Refused BP Diastolic BP Location Tested BP Systolic BP Type Fetus Heart Rate Present Fetus Movement Comments Flowsheet Date 08/27/2023 Dacosta Score Blood Edema Fundus Height Fundus Units Glucose Ketones Leukocytes Nitrite Labor Signs Protein Cervic Dilation Cervic Effacement Cervic Station none Type Weight in lbs Pre/Post Dialysis Refused Weight 223.537320813299 BP Diastolic BP Location Tested BP Systolic BP Type 65 119 Fetus Heart Rate Present A 145 Present Fetus Movement A Yes Comments Patient is having some disch arge. us 08/26 efw 86%, +FM, planning tdap, going to [place] this weekend, call for preadmission, precautions and education f/u 2 weeks Flowsheet Date 09/12/2023 Dacosta Score Blood Edema Fundus Height Fundus Units Glucose Ketones Leukocytes Nitrite Labor Signs Protein Cervic Dilation Cervic Effacement Cervic Station trace 36 Type Weight in lbs Pre/Post Dialysis Refused Weight 225.593682975334 BP Diastolic BP Location Tested BP Systolic BP Type 79 118 Fetus Heart Rate Present A 144 Present Fetus Movement A Yes Comments Patient states that having s ome swelling. growth at next visit, plan 36 week gbs, +FM, precautions and education, tdap dpne, precautions and education reviewed Flowsheet Date 09/26/2023 Dacosta Score Blood Edema Fundus Height Fundus Units Glucose Ketones Leukocytes Nitrite Labor Signs Protein Cervic Dilation Cervic Effacement Cervic Station Type Weight in lbs Pre/Post Dialysis Refused BP Diastolic BP Location Tested BP Systolic BP Type Fetus Heart Rate Present Fetus Movement Comments Flowsheet Date 09/26/2023 Dacosta Score Blood Edema Fundus Height Fundus Units Glucose Ketones Leukocytes Nitrite Labor Signs Protein Cervic Dilation Cervic Effacement Cervic Station Type Weight in lbs Pre/Post Dialysis Refused 225.673975385162 BP Diastolic BP Location Tested BP Systolic BP Type 79 120 Fetus Heart Rate Present Fetus Movement A Yes Comments Patient c/o ankle edema, and discharge. reviewed education and precautions, us EFW 99% at term may be <5000gm, discussed risk of shoulder dystocia, distress, if term rec , consider 39 week IOL will discuss at next visit, plan 38 week membrane sweep Flowsheet Date 10/01/2023 Dacosta Score Blood Edema Fundus Height Fundus Units Glucose Ketones Leukocytes Nitrite Labor Signs Protein Cervic Dilation Cervic Effacement Cervic Station 1cm 50% -2 Type Weight in lbs Pre/Post Dialysis Refused Weight 227.7901486525 BP Diastolic BP Location Tested BP Systolic BP Type 74 119 Fetus Heart Rate Present Fetus Movement A Yes Comments Patient states that has cold and has had some BH contractions. reviewed precautions eductaion f/u one week Menstrual History Last Menstrual Date Menses Monthly On Bcp Conception Prior Menses Frequency Hcg Plus Date Menarche Onset Age 1101/16/2023 Genetic Screening And Infection History Question Response Note Mental Retardation/Autism false Patient's Age Will Be 35 Years Or Older At Estim ated Date of Delivery false Thalassemia (Bahraini, Kazakh, Mediterranean, Or Background): MCV < 80 false Neural Tube Defect (Meningomyelocele, Spina Bifi da, Or Anencephaly) false Congenital Heart Defect false Down Syndrome false Robert-Sachs (eg, Voodoo, Cajun, Slovak-Marshallese) f alse Lenin Disease false Sickle Cell Disease Or Trait () false Hemophilia Or Other Blood Disorders false Muscular Dystrophy false Cystic Fibrosis false Benewah's Chorea false Intellectual Disability/Autism false If Yes, Was Person Tested For Fragile X? false Other Inherited Genetic Or Chromosomal Disorder false Maternal Metabolic Disorder (eg, Type 1 Diabetes , PKU) false Patient Or Baby's Father Had A Child With Defects Not Listed Above false Recurrent Loss, Or A Stillbirth false Medications (including Suppl ements, Vitamins, Herbs, OTC Drugs), Illicit/Recreational Drugs, Alcohol true pnv If Yes, Agent(s) And Strength/Dosage false Any Other Genetic History false Live With Someone With TB Or Exposed To TB false Patient Or Partner Has History Of Genital Herpes false Rash Or Viral Illness Since Last Menstrual Perio d false History Of STD, Gonorrhea, Chlamydia, HPV, Syphi lis false Other Infection History false History of HIV false History of Hepatitis false Prior GBS-infected child false Hemoglobinopathy Or Carrier false Other Structural Defect false Recent Travel History Outside of Country false Delivery Information Delivery Date Delivery Type Labor Anesthesia Weeks Gestation Incision Type Labor Labor Length Hrs Delivered By Post Complications Tubal Sterilization Discharge Date Comments 4 [facility] 37.4 false Marian Austin CNMyra Large for gestation age fetus Discharge Information Feeding Method Contraceptive Method Maternal HG B and HCT Levels
[2024-08-09 13:27] LABS: Basophils Absolute Auto 0.1 K/mm3 (0.0-0.1); Basophils Percent Auto 0.6 % (0.2-1.2); Eosinophils Absolute Auto 0.4 K/mm3 (0-0.3); Eosinophils Percent Auto 4.7 % (0-4.4); Hematocrit 42.2 % (37.0-47.0); Hemoglobin 13.8 g/dL (12.0-15.0); Immature Granulocyte Absolute 0.02 K/mm3 (0.00-0.031); Immature Granulocyte Percent A 0.3 % (0-0.5); Lymphocytes Absolute Auto 2.73 K/mm3 (0.9-3.2); Lymphocytes Percent Auto 35.4 % (18.3-44.2); Mean Corpuscular HGB Conc 32.7 g/dl (32-36); Mean Corpuscular Hemoglobin 30.3 pg (26-34); Mean Corpuscular Volume 92.7 fl (80-100); Mean Platelet Volume 9.8 fl (7.4-10.4); Monocytes Absolute Auto 0.6 K/mm3 (0.1-0.6); Monocytes Percent Auto 8.3 % (2.6-8.5); Neutrophils Absolute Auto 3.9 K/mm3 (1.3-6.7); Neutrophils Percent Auto 50.7 % (45.5-73.1); Platelet Count Result 237 k/mm3 (150-375); Red Blood Count 4.55 M/mm3 (4.2-5.4); Red Cell Distribution Width 12.3 % (11.5-14.5); White Blood Count 7.7 K/mm3 (4.5-10.0)
[2024-08-09 15:29] LABS: Iron 46 ug/dL (37-170)
[2024-08-09 15:42] LABS: Percent Iron Saturation 14 % (20-50)
[2024-08-09 15:46] LABS: Free T4 Free Thyroxine 1.15 ng/dL (0.78-2.19)
[2024-08-09 16:33] LABS: Alanine Aminotransferase 15 U/L (6-35); Albumin Level 4.3 g/dL (3.5-5.1); Alkaline Phosphatase 58 U/L (38-126); Anion Gap 6 mmol/L (4-12); Aspartate Amino Transferase 35 U/L (14-36); Bilirubin,Total 0.3 mg/dL (0.2-1.3); Blood Urea Nitrogen 16 mg/dL (7-17); Calcium 9.2 mg/dL (8.4-10.2); Carbon Dioxide 26 mmol/L (22-30); Chloride 105 mmol/L (98-107); Cholesterol 172 mg/dL (0-200); Estimated Glomerular Filt Rate > 60; Glucose 89 mg/dL (65-110); HDL Direct 52 mg/dL; Potassium 4.4 mmol/L (3.4-5.0); Sodium 137 mmol/L (137-145); Total Protein 7.6 g/dL (6.3-8.2); Triglycerides 57 mg/dL (<150)
[2024-08-09 16:47] LABS: LDL Cholesterol Direct 89 mg/dL
[2024-08-09 17:39] LABS: Folic Acid 6.3 ng/mL (2.76->20)
== END 2024-08-09 08:23 | disposition home or self-care (01) ==
LOC: ANHGOSHLAB 08:23
PROVIDERS: PCP Family Medicine; Visit Provider Student in an Organized Health Care Education/Training Program
DX: Z13.220 Encounter for screening for lipoid disorders (principal); R53.83 Other fatigue; Z86.2 Personal history of diseases of the blood and blood-forming organs and certain disorders involving the immune mechanism
CPT/HCPCS: 36415; 80053; 80061; 82607; 82728; 82746; 83540; 83550; 84439; 84443; 85025